=== PATIENT | female | born 1995 | race Caucasian/White ===

== ENCOUNTER → 2018-08-27 | Outpatient (REF) | payer OTHER ==
[2018-08-27 11:34] LABS: BLOOD UREA NITROGEN 8 MG/DL (7-18); CALCIUM LEVEL 8.5 MG/DL (8.5-10.1); CARBON DIOXIDE LEVEL 26 MEQ/L (21-32); CHLORIDE LEVEL 108 MEQ/L (98-107); CREATININE FOR GFR 0.81 MG/DL (0.55-1.30); FREE T4 1.01 NG/DL (0.76-1.46); GLOMERULAR FILTRATION RATE > 60.0 (>60); GLUCOSE, FASTING 93 MG/DL (70-100); POTASSIUM SERUM 4.3 MEQ/L (3.5-5.1); SODIUM LEVEL 140 MEQ/L (136-145); THYROID STIMULATING HORMONE 0.546 uIU/ML (0.358-3.740)
[2018-08-27 11:35] LABS: TOTAL 25(OH) VITAMIN D 17.6 NG/ML (30.0-100.0)
[2018-08-27 11:50] LABS: HEMOGLOBIN A1c 5.3 %
== END ==
LOC: M SFHCLERA 09:01
PROVIDERS: ATTEND Family Medicine
DX: E66.09 Other obesity due to excess calories (principal)

== ENCOUNTER → 2019-04-22 | Outpatient (REF) | payer OTHER | LOC: M SFHCLERA 10:22 | PROVIDERS: ATTEND Family Medicine | DX: D22.4 Melanocytic nevi of scalp and neck (principal) ==

== ENCOUNTER → 2019-06-30 | Outpatient (REF) | payer OTHER | LOC: M SFHCLERA 17:13 | PROVIDERS: ATTEND Nurse Practitioner Family | DX: J00 Acute nasopharyngitis [common cold] (principal) ==

== ENCOUNTER → 2020-12-07 | Outpatient (CLI) | payer OTHER ==
--- NOTE | 2020-12-08 13:18 | REPVR ---
PROCEDURE INFORMATION: Exam: CT Maxillofacial Without Contrast, Sinus Exam date and time: 12/07/2020 11:51 AM Age: 25 years old Clinical indication: Sinusitis; Chronic; Additional Info: CHRONIC MOORE SINUSITIS TECHNIQUE: Imaging protocol: CT Maxillofacial without contrast. Focus on the sinuses. Radiation optimization: All CT scans at this facility use at least one of these dose optimization techniques: automated exposure control; mA and/or kV adjustment per patient size (includes targeted exams where dose is matched to clinical indication); or iterative reconstruction. COMPARISON: No relevant prior studies available. FINDINGS: Frontal sinuses: The frontal sinuses are clear. Ethmoid air cells: The ethmoid air cells are not opacified and no apparent mucosal thickening is seen. Sphenoid sinuses: The sphenoid sinuses are clear. Maxillary sinuses: Mild mucosal thickening is present at the floor of the maxillary sinuses bilaterally without sinus opacification or involvement of the ostiomeatal units. Attenuation of the accumulated material suggest more acute mucous rather than inspissated secretions. Nasal cavity/Septum: Normal. Orbital cavity: Orbits are normal. Bones/joints: No acute findings. Soft tissues: Normal. Mastoid air cells: The mastoid air cells are clear. IMPRESSION: Mild mucosal thickening at the floor of both maxillary sinuses, with CT characteristics reflecting more acute sinus mucositis rather than chronic. Remaining paranasal sinuses are clear. Electronically signed by: Sofiya Martínez On 12/08/2020 13:18:07 PM
== END ==
LOC: M RAD 11:10
PROVIDERS: ATTEND Otolaryngology
DX: J32.4 Chronic pansinusitis (principal)

== ENCOUNTER → 2020-12-29 | Outpatient (CLI) | payer OTHER ==
[~2020-12-29] MED LIST: ADDE20CA3 PO; SERT-141 PO; SETL1TAB PO; VENTAER INH
== END ==
LOC: M LABSMTC 13:00
PROVIDERS: ATTEND Anesthesiology
DX: Z01.812 Encounter for preprocedural laboratory examination (principal); Z20.822 Contact with and (suspected) exposure to COVID-19

== ENCOUNTER 2021-01-03 09:46 | Day surgery (SDC) | payer OTHER ==
[~2021-01-03] VITALS: Ht 170.2 cm; Wt 89.3 kg
[~2021-01-03 09:46] MED LIST changes: +LIDOCAINE 1% MDV 20ML VIAL SQ PRN; +LIDOCAINE 2% 100MG/5ML SDV (FOR ANES.) As Ordered ONE; +LR 1,000 ML IV ONE; +MIDAZOLAM INJ 2MG/2ML VIAL (J2250 PER 1MG) As Ordered ONE; +ONDANSETRON 4MG/2ML VIAL As Ordered ONE; +ROCURONIUM BROMIDE 50 MG/5 ML VIAL As Ordered ONE; +dexameTHASONE 4 MG/ML 1ML VIAL (J1100 PER 1MG) As Ordered ONE; +fentaNYL 100 MCG/2 ML INJECTION (J3010) As Ordered ONE; +propofoL 200 MG/20 ML VIAL As Ordered ONE
[2021-01-03] MEDS ORDERED: LIDOCAINE W/EPINEPHRINE 1% 20ML VIAL As Ordered ONE (09:50)
[2021-01-03] MEDS ORDERED: BUPIVACAINE/EPIN 0.25% 30 ML VIAL As Ordered ONE (09:50)
[2021-01-03] MEDS ORDERED: SCOPOLAMINE 1MG TRANSDERMAL PATCH As Ordered ONE (10:12)
[2021-01-03] MEDS ORDERED: SCOPOLAMINE 1MG TRANSDERMAL PATCH TOP ONE (10:20)
[2021-01-03] MEDS ORDERED: ACETAMINOPHEN 1000MG 100ML IV BTL (OFIRMEV) (J0131 PER 10MG) As Ordered ONE (10:27)
[2021-01-03] MEDS ORDERED: SUGAMMADEX SODIUM 500 MG/5 ML VIAL (BRIDION) As Ordered ONE (10:28)
[2021-01-03] MEDS ORDERED: ONDANSETRON 4MG/2ML VIAL IV PRN (11:10)
[2021-01-03] MEDS ORDERED: LR 1,000 ML IV SCH ×2 (11:10)
[2021-01-03] MEDS ORDERED: NORCO, ANEXSIA 5/325MG TABLET (HYDROcodone/ACETAMINOPHEN) PO PRN (11:15)
[2021-01-03] MEDS: fentaNYL 100 MCG/2 ML INJECTION (J3010) IV PRN ×4 (11:27→11:42)
[2021-01-03] MEDS: oxyCODONE 5MG TAB PO PRN ×2 (11:28→12:28)
--- NOTE | 2021-01-03 11:53 | RO ---
OPERATIVE NOTE DATE OF OPERATION: 01/03/2021 PREOPERATIVE DIAGNOSIS: Chronic tonsillitis. POSTOPERATIVE DIAGNOSIS: Chronic tonsillitis. PROCEDURE: Tonsillectomy. 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 DESCRIPTION OF PROCEDURE: Under general anesthesia with the patient intubated a Maya-Christofer mouth gag was inserted. The tonsillar area was infiltrated with lidocaine, epinephrine, and Marcaine. Using cautery, I dissected the tonsils free from their beds on both sides. I cauterized vessels seen. The same procedure was performed on both sides. No bleeding. The patient tolerated the procedure well and was extubated and transferred to the recovery room in excellent condition.
[2021-01-03 13:10] VITALS: BP 118/57
== END 2021-01-03 13:16 | disposition home or self-care (01) ==
LOC: M SDC 09:46
PROVIDERS: ATTEND Otolaryngology
DX: J35.01 Chronic tonsillitis (principal); K21.9 Gastro-esophageal reflux disease without esophagitis; G43.909 Migraine, unspecified, not intractable, without status migrainosus; Z79.899 Other long term (current) drug therapy
CPT/HCPCS: 42826; 81025; 88302; J0131; J1100; J2250; J2405; J3010

== ENCOUNTER → 2021-05-18 | Outpatient (CLI) | payer OTHER ==
[~2021-05-18] MED LIST changes: +ARIP1TAB4; -LIDOCAINE 1% MDV 20ML VIAL SQ PRN; -LIDOCAINE 2% 100MG/5ML SDV (FOR ANES.) As Ordered ONE; -LR 1,000 ML IV ONE; -MIDAZOLAM INJ 2MG/2ML VIAL (J2250 PER 1MG) As Ordered ONE; -ONDANSETRON 4MG/2ML VIAL As Ordered ONE; -ROCURONIUM BROMIDE 50 MG/5 ML VIAL As Ordered ONE; -dexameTHASONE 4 MG/ML 1ML VIAL (J1100 PER 1MG) As Ordered ONE; -fentaNYL 100 MCG/2 ML INJECTION (J3010) As Ordered ONE; -propofoL 200 MG/20 ML VIAL As Ordered ONE
== END ==
LOC: M LABSMTC 10:17
PROVIDERS: ATTEND Anesthesiology
DX: Z01.812 Encounter for preprocedural laboratory examination (principal); Z20.822 Contact with and (suspected) exposure to COVID-19

== ENCOUNTER 2021-05-23 06:10 | Day surgery (SDC) | payer OTHER ==
[~2021-05-23] VITALS: Ht 170.2 cm; Wt 92.1 kg
[~2021-05-23 06:10] MED LIST changes: +LR 1,000 ML IV ONE
--- OUTSIDE RECORDS SUMMARY | 2021-05-23 06:14 | CCD ---
Author Author [facility] Organization [facility] Address Unknown Phone Unavailable Care Team Providers Care Sharepoint Developer Name Role Phone Lesly Rin Unavailable PROBLEMS Type Condition ICD9-CM Code [id number] Code Onset Dates Condition S tatus W/U Status Risk SNOMED Code Notes Problem Attention deficit disorder, unspecified hyperactivity presence F98.8 Active confirmed 88286762 Problem Dysthymia F34.1 Active confirmed 97508163 Problem Allergic rhinitis, unspecified seasonality, unspecifie d trigger J30.9 Active confirmed 64635586 Problem Asymmetry of tonsils J35.8 Active confirmed 856381303 Problem Class 2 obesity due to exces s calories without serious comorbidity in adult, unspecified BMI E66.09 Active confirmed 5205555 01 Problem Attention deficit hyperactivity disorder (ADHD), unspecified ADHD type F90.9 Active confirmed 623574372 Problem Severe episode of recurrent major depressive disorder, without psychotic features F33.2 Active confirmed 05493882 Problem Moderate episode of recurrent major depressive disorder F33.1 Active confirmed 715816514 Problem Post-traumatic stress disorder, unspecified F43.10 Active confirmed 68783113 Problem Dysthymic disorder F34.1 Active confirmed 7 0166676 ALLERGIES Allergen (clinical drug ingredient) Drug/Non Drug Allergy do cumented on EMR Reaction Allergy Type Onset Date Status amoxicillin Amoxicillin([facility] Code:[address]-85) vomiting Drug Aller gy Active ENCOUNTERS from 1994 to 2021-05-16 Encounter Location Date Provider Diagnosis [facility] [address] [facility] [phone] [place] [address] Apr, Rin Grace Post-traumatic stress disord er, unspecified F43.10 IMMUNIZATIONS Vaccine Route Administration Date Status TDAP 0.5mL (Boostrix) IM Intramuscular October 27, 2019 Administe red Influenza 6mo & up Fluzone IM Intramuscular Jun 08, 2020 Admi nistered Influenza 6mo & up Fluzone IM Intramuscular Aug 27, 2018 Admi nistered SOCIAL HISTORY Tobacco Use: Social History Observation Description Date Details (start date - stop date) Never Smoker Sex Assigned At : Social History Observation Description Sex Assigned At Unknown Education: Question Answer Notes Level of Education: Not Finished College Audit Question Answer Notes Total Score: 0 Interpretation: Alcohol Education Language: Question Answer Notes Languages spoken: Georgian sign. Mother deaf Adventism: Question Answer Notes Adventism 33 None Domestic Violence: Question Answer Notes Status: Single Sexual Hx: Question Answer Notes Had sex in the last 12 months (vaginal, oral, or anal)? No LMP: 02/13/21 Have you ever had an STD? No Drug and Alcohol Question Answer Notes Total Score: 0 Interpretation: No problems reported Alcohol Screening: Question Answer Notes Did you have a drink containing alcohol in the past year? No Points 0 Interpretation Negative Tobacco Use: Question Answer Notes Are you a: never smoker Never REASON FOR REFERRAL No Information VITAL SIGNS No information MEDICATIONS Medication SIG (Take, Route, Frequency, Duration) Notes Start Da te End Date Status Flonase Allergy Relief 50 MCG/ACT 1 spray in each nost ril Nasally bid for 30 day(s) Sep, Not-Taking Sertraline HCl 50 MG 1 tablet Orally Once a day for 90 day(s) May, Active Ventolin HFA 108 (90 Base) MCG/ACT 2 puffs as needed I nhalation every 6 hrs for 90 days May, Active Adderall 10 MG 1 tablet Orally Twice a day for 30 days Apr, Active ZyrTEC Allergy 10 MG 1 tablet Orally Once a day for 30 day(s) Sep, Not-Taking Omeprazole 20 MG 1 capsule 30 minutes before morning meal Orally Once a day for 30 day(s) Sep, Not-Taking Prazosin HCl 1 MG 1 capsule at bedtime for thr ee days, then 2 caps at bedtime Orally Once a day for 30 day(s) November, Active Jolessa 0.15-0.03 MG 1 tablet Orally Once a day for 91 day(s) 11 Apr, 2019 Active PROCEDURES No Information RESULTS No Results REASON FOR VISIT New Refill Request MEDICAL (GENERAL) HISTORY Type Description Date Medical History ADD Medical History dysthymia Medical History obesity Medical History depression Surgical History Tonsillectomy 01/03/21 Hospitalization History tongue swelling after dental procedu re 2011 Goals Section No Information Health Concerns No Information MEDICAL EQUIPMENT No Information MENTAL STATUS No Information FUNCTIONAL STATUS No Information ASSESSMENTS Encounter Date Diagnosis Assessment Notes Treatment Notes Treatm ent Clinical Notes Apr, Post-traumatic stress disorder, unspecified (ICD -10 - F43.10) PLAN OF TREATMENT Medication Medication Name Sig Start Date Stop Date Adderall 10 MG 1 tablet Orally Twice a day for 30 days Apr, Prazosin HCl 1 MG 1 capsule at bedtime for thr ee days, then 2 caps at bedtime Orally Once a day for 30 day(s) November, Insurance Providers Payer Name Payer Address Payer Phone Insured Name Patient Relati onship to Insured Coverage Start Date Coverage End Date [facility] COMMUNITY [facility]AN [facility] [address] [facility] [address] GISELLE BRIGGS
--- OUTSIDE RECORDS SUMMARY | 2021-05-23 06:15 | CCD ---
Author Author [facility] Organization [facility] Address Unknown Phone Unavailable Care Team Providers Care Head And Neck Surgeon Name Role Phone Lesly, iRn Unavailable PROBLEMS Type Condition ICD9-CM Code [id number] Code Onset Dates Condition S tatus W/U Status Risk SNOMED Code Notes Problem Attention deficit disorder, unspecified hyperactivity presence F98.8 Active confirmed 19789149 Problem Dysthymia F34.1 Active confirmed 66582545 Problem Allergic rhinitis, unspecified seasonality, unspecifie d trigger J30.9 Active confirmed 98708700 Problem Asymmetry of tonsils J35.8 Active confirmed 467265799 Problem Class 2 obesity due to exces s calories without serious comorbidity in adult, unspecified BMI E66.09 Active confirmed 4815401 01 Problem Attention deficit hyperactivity disorder (ADHD), unspecified ADHD type F90.9 Active confirmed 317725197 Problem Severe episode of recurrent major depressive disorder, without psychotic features F33.2 Active confirmed 30346435 Problem Moderate episode of recurrent major depressive disorder F33.1 Active confirmed 060513475 Problem Post-traumatic stress disorder, unspecified F43.10 Active confirmed 72736446 Problem Dysthymic disorder F34.1 Active confirmed 7 5456988 ALLERGIES Allergen (clinical drug ingredient) Drug/Non Drug Allergy do cumented on EMR Reaction Allergy Type Onset Date Status amoxicillin Amoxicillin([facility] Code:[address]-90) vomiting Drug Aller gy Active ENCOUNTERS from 1994 to 2021-03-16 Encounter Location Date Provider Diagnosis [facility] [address] [facility] [phone] [place] [address] Feb, Rin Lesly IMMUNIZATIONS Vaccine Route Administration Date Status TDAP [...] Education Language: Question Answer Notes Languages spoken: Vietnamese sign. Mother deaf Church: Question Answer Notes Church 33 None Domestic Violence: Question Answer Notes [...] Nasally bid for 30 day(s) Sep, Not-Taking Jolessa 0.15-0.03 MG 1 tablet Orally Once a day for 91 day(s) Oct, Active Sertraline HCl 50 MG 1 tablet Orally Once a day for 90 day(s) May, Active Prazosin HCl 1 MG 1 capsule at bedtime for thr ee days, then 2 caps at bedtime Orally Once a day for 30 day(s) November, Active ZyrTEC Allergy 10 MG 1 tablet Orally Once a day for 30 day(s) Sep, Not-Taking Omeprazole 20 MG 1 capsule 30 minutes before morning meal Orally Once a day for 30 day(s) Sep, Not-Taking Ventolin HFA 108 (90 Base) MCG/ACT 2 puffs as needed I nhalation every 6 hrs for 90 days May, Active Adderall 10 MG 1 tablet Orally Twice a day for 30 days Feb, Active PROCEDURES No Information RESULTS No Results [...] No Information FUNCTIONAL STATUS No Information ASSESSMENTS No Information PLAN OF TREATMENT Medication Medication Name Sig Start Date Stop Date Prazosin HCl 1 MG 1 capsule at bedtime for thr ee days, then 2 caps at bedtime Orally Once a day for 30 day(s) November, Adderall 10 MG 1 tablet Orally Twice a day for 30 days Feb, Next Appt Details Provider Name:Jackelyn Khoury, 2021-03-22 03:00:00 PM, [address] [facility], , [place], [address] Insurance Providers Payer Name Payer Address Payer Phone Insured Name Patient Relati onship to Insured Coverage Start Date Coverage End Date [facility] COMMUNITY PLAN [facility] [employer] [address] [facility] [address] [phone] GISELLE BRIGGS
--- OUTSIDE RECORDS SUMMARY | 2021-05-23 06:15 | CCD | Continuity of Care Document ---
Author Author Jose C MENEZES MD Organization Unknown Address [address] [address] Phone [phone] Care Team Providers Care Taxicab Starter Name Role Phone Candi Buckner AUTM [phone] Rin Grace M.D. AUTM [phone] Problems Description No Information Available Social History Type Date Description Comments Sex Unknown ETOH Use Denies alcohol use Tobacco Use Start: Unknown Non Smoker Recreational Drug Use Denies Drug Use Allergies, Adverse Reactions, Alerts Description No Known Drug Allergies Medications Active Medications SIG Qnty Indications Ordering Provide r Date Setlakin 0.15-0.03mg Tablets Take One Tablet By Mouth Every Day Unknown Amphetamine-Dextroamphet ER 20mg Caps ER 24HR Take 1 Capsule By Mouth In The Morning Maximum Daily Dose 1 Unknown Prazosin HCL 1mg Capsules Rin Grace M.D. Sertraline HCL 50mg Tablets Kailyn Ann M.D. History Medications [place] 5-325mg Tablets 1 tab every 4 hours as needed pain 45tabs Alejandro Menezes MD 01/03/2021 - Immunizations Description No Information Available Vital Signs Date Vital Result Comment 04/09/2021 3:03pm Height 67 inches 5'7" Weight 203.00 lb BMI (Body Mass Index) 31.8 kg/m2 [place] Body Weight 135 lb Weight 92.081 kg BSA (Body Surface Area) 2.04 m2 01/10/2021 2:08pm Height 67 inches 5'7" Weight 192.00 lb BMI (Body Mass Index) 30.1 kg/m2 [place] Body Weight 135 lb Weight 87.091 kg BSA (Body Surface Area) 1.99 m2 Results Test Acquired Date Facility Test Result H/L Range Note Laboratory test finding 01/03/2021 [facility] Main Lab [address] [place] [address] [phone] Pathology Request For Service (SEE NOTE) 1 1 FINAL DIAGNOSIS AB - Right and left tonsils, tonsillectomy: Lymphoid follicular hyperplasia. Actinomyces colonies are noted in tonsillar crypts. 01/04/2021 - 1321 CLINICAL DIAGNOSIS Chronic tonsillitis 01/04/2021 - 0715 GROSS DIAGNOSIS A - Received in formalin labeled "right tonsil" is a 3.3 x 2 x 2 cm. tonsil. The mucosal lining is smooth. Sectioning reveals deep crypts containing debris, quality control representative in one. B - Received in formalin labeled "left tonsil" is a 3.7 x 2.2 x 2 cm. tonsil. The mucosal lining is smooth. Sectioning reveals deep crypts containing debris, quality control representative in one. - 01/04/2021 - 0715 Signed Iram Hoyos MD 01/04/2021 1501 Procedures Date Code Description Status 04/09/2021 91924 Office/Outpatient Established Lo w MDM 20-29 Min Completed 04/09/2021 63014 Endoscopy Nasal Diagnostic Compl eted 01/10/2021 31164 Office/Outpatient Established Lo w MDM 20-29 Min Completed 01/03/2021 36041 Tonsillectomy > 12 Years Complet ed 11/23/2020 48973 Office/Outpatient New Low MDM 30 -44 Minutes Completed 11/23/2020 45762 Laryngoscopy Flexible Fiberoptic Diagnostic Completed Medical Devices Description No Information Available Encounters Type Date Location Provider Dx Diagnosis Office Visit 04/09/2021 3:10p [facility] Alejandro Menezes MD J30.9 Allergic rhinitis, unspecified J34.2 Deviated nasal septum Office Visit 01/10/2021 2:00p [facility] Don Gray II, PA-C J35.01 Chronic tonsillitis J34.2 Deviated nasal septum Office Visit 11/23/2020 2:10p [facility] Alejandro Menezes MD J32.4 Chronic pansinusitis J35.01 Chronic tonsillitis Assessments Date Code Description Provider 04/09/2021 J30.9 Allergic rhinitis, unspecified N satlin Menezes MD 04/09/2021 J34.2 Deviated nasal septum Alejandro rodriguez MD 01/10/2021 J35.01 Chronic tonsillitis Don Gray II, PAAnaC 01/10/2021 J34.2 Deviated [facility] septum [facility] PA[facility] 01/03/2021 J35.01 Chronic tonsillitis Alejandro Menezes MD 11/23/2020 J32.4 Chronic pansinusitis Alejandro Menezes MD 11/23/2020 J35.01 Chronic tonsillitis Alejandro Menezes MD Plan of Treatment Future Appointment(s):* 05/16/2021 7:30 am - Alejandro Menezes MD at [facility] 04/09/2021 - Alejandro Menezes MD* J30.9 Allergic rhinitis, unspecified * J34.2 Deviated nasal septum Functional Status Description No Information Available Mental Status Description No Information Available Referrals Refer to Reason for Referral Status Appt Date Alejandro Menezes M.D. 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
--- OUTSIDE RECORDS SUMMARY | 2021-05-23 06:15 | CCD ---
Author Author [facility] Organization [facility] Address Unknown Phone Unavailable Care Team Providers Care Alterations Sewer Name Role Phone Jackelyn Khoury Unavailable PROBLEMS Type Condition ICD9-CM Code [id number] Code Onset Dates Condition S tatus W/U Status Risk SNOMED Code Notes Problem Attention deficit disorder, unspecified hyperactivity presence F98.8 Active confirmed 20684338 Problem Dysthymia F34.1 Active confirmed 90668130 Problem Allergic rhinitis, unspecified seasonality, unspecifie d trigger J30.9 Active confirmed 02951649 Problem Asymmetry of tonsils J35.8 Active confirmed 729419804 Problem Class 2 obesity due to exces s calories without serious comorbidity in adult, unspecified BMI E66.09 Active confirmed 7926382 01 Problem Attention deficit hyperactivity disorder (ADHD), unspecified ADHD type F90.9 Active confirmed 042745117 Problem Severe episode of recurrent major depressive disorder, without psychotic features F33.2 Active confirmed 49433211 Problem Moderate episode of recurrent major depressive disorder F33.1 Active confirmed 622349097 Problem Post-traumatic stress disorder, unspecified F43.10 Active confirmed 01172905 Problem Dysthymic disorder F34.1 Active confirmed 7 9378324 ALLERGIES Allergen (clinical drug ingredient) Drug/Non Drug Allergy do cumented on EMR Reaction Allergy Type Onset Date Status amoxicillin Amoxicillin([facility] Code:[address]-23) vomiting Drug Aller gy Active ENCOUNTERS from 1994 to 2021-03-07 Encounter Location Date Provider Diagnosis [address] [place] [address] Feb, Jackelyn Khoury Post-traumatic stres s disorder, unspecified F43.10 and Dysthymic disorder F34.1 IMMUNIZATIONS Vaccine Route Administration Date Status TDAP [...] Education Language: Question Answer Notes Languages spoken: Estonian sign. Mother deaf Scientology: Question Answer Notes Scientology 33 None Domestic Violence: Question Answer Notes [...] hrs for 90 days May, Active Adderall XR 20 mg 1 capsule in the morning Orally Once a d ay for 90 day(s) Code B Jan, Active PROCEDURES No Information RESULTS No Results REASON FOR VISIT No Information MEDICAL (GENERAL) HISTORY Type Description Date Medical History ADD Medical History dysthymia Medical History obesity Medical History depression Surgical History Tonsillectomy 01/03/21 Hospitalization History tongue swelling after dental procedu re 2011 Goals Section No Information Health Concerns No Information MEDICAL EQUIPMENT No Information MENTAL STATUS No Information FUNCTIONAL STATUS No Information ASSESSMENTS Encounter Date Diagnosis Assessment Notes Treatment Notes Treatm ent Clinical Notes Feb, Post-traumatic stress disorder, unspecified (ICD -10 - F43.10) Jose C attended scheduled follow up appointment. Presents for tx with ongoing hx of anxious and depressive symptoms. Supported Jose C in processing time since previous appointment using cognitive therapy. Jose C is scheduled for follow up appointment for psychotherapy 03/15/21 at 3pm, aware to call for earlier appointment if needed and to use ER for mental health emergencies. Feb, Dysthymic disorder (ICD-10 - F34.1) PLAN OF TREATMENT Medication Medication Name Sig Start Date Stop Date Prazosin HCl 1 MG 1 capsule at bedtime for thr ee days, then 2 caps at bedtime Orally Once a day for 30 day(s) November, Treatment Notes Assessment Notes Clinical Notes Post-traumatic stress disorder, unspecified Jose C attended scheduled follow up appointment. Presents for tx with ongoing hx of anxious and depressive symptoms. Supported Jose C in processing time since previous appointment using cognitive therapy.Jose C is scheduled for follow up appointment for psychotherapy 03/15/21 at 3pm, aware to call for earlier appointment if needed and to use ER for mental health emergencies. Next Appt Details Provider Name:Jackelyn Khoury, 2021-03-15 03:00:00 PM, [address] [facility], , [place], [address] Provider Name:Jackelyn Khoury 2021-03-22 03:00:00 PM, [address], , [place], [address] Insurance Providers Payer Name Payer Address Payer Phone Insured Name Patient Relati onship to Insured Coverage Start Date Coverage End Date [facility] [address] [facility] [phone] JOSE C BRIGGS
--- OUTSIDE RECORDS SUMMARY | 2021-05-23 06:15 | CCD ---
Author Author [facility] Organization [facility] Address Unknown Phone Unavailable Care Team Providers Care Crm Analyst Name Role Phone Lesly, Rin Unavailable PROBLEMS Type Condition ICD9-CM Code [id number] Code Onset Dates Condition S tatus W/U Status Risk SNOMED Code Notes Problem Attention deficit disorder, unspecified hyperactivity presence F98.8 Active confirmed 67364990 Problem Dysthymia F34.1 Active confirmed 79613712 Problem Allergic rhinitis, unspecified seasonality, unspecifie d trigger J30.9 Active confirmed 93481452 Problem Asymmetry of tonsils J35.8 Active confirmed 265740870 Problem Class 2 obesity due to exces s calories without serious comorbidity in adult, unspecified BMI E66.09 Active confirmed 1329704 01 Problem Attention deficit hyperactivity disorder (ADHD), unspecified ADHD type F90.9 Active confirmed 641993368 Problem Severe episode of recurrent major depressive disorder, without psychotic features F33.2 Active confirmed 37566331 Problem Moderate episode of recurrent major depressive disorder F33.1 Active confirmed 561146695 Problem Post-traumatic stress disorder, unspecified F43.10 Active confirmed 28509218 Problem Dysthymic disorder F34.1 Active confirmed 7 0101836 ALLERGIES Allergen (clinical drug ingredient) Drug/Non Drug Allergy do cumented on EMR Reaction Allergy Type Onset Date Status amoxicillin Amoxicillin([facility] Code:[address]-74) vomiting Drug Aller gy Active ENCOUNTERS from 1994 to 2021-03-07 Encounter Location Date Provider Diagnosis [facility] [address] [facility] [phone] [place] [address] Feb, Rin Lesly Attention deficit hyperactiv ity disorder (ADHD), unspecified ADHD type F90.9 and Post-traumatic stress disorder, unspecified F43.10 IMMUNIZATIONS Vaccine Route Administration Date [...] Education Language: Question Answer Notes Languages spoken: Greenlandic sign. Mother deaf Jew: Question Answer Notes Jew 33 None Domestic Violence: Question Answer Notes [...] REASON FOR REFERRAL No Information VITAL SIGNS Weight 201.4 lbs Feb, Weight-kg 91.35 kg Feb, Height 67 in Feb, BMI 31.54 kg/m2 Feb, Heart Rate 62 /min Feb, Respiratory Rate 17 /min Feb, Temperature 98.9 degrees Fahrenheit Feb, Oximetry 100 Feb, Blood pressure systolic 112 mm Hg Feb, Blood pressure diastolic 60 mm Hg Feb, MEDICATIONS Medication SIG (Take, Route, Frequency, Duration) [...] Information RESULTS No Results REASON FOR VISIT transfer from [facility] (GENERAL) HISTORY Type Description Date Medical History ADD Medical History dysthymia Medical History obesity Medical History depression Surgical History Tonsillectomy 01/03/21 Hospitalization History tongue swelling after dental procedu re 2011 Goals Section No Information Health Concerns No Information MEDICAL EQUIPMENT No Information MENTAL STATUS No Information FUNCTIONAL STATUS No Information ASSESSMENTS Encounter Date Diagnosis Assessment Notes Treatment Notes Treatm ent Clinical Notes Feb, Attention deficit hyperactiv ity disorder (ADHD), unspecified ADHD type (ICD-10 - F90.9) Pt currently taking Adderall 20mg extended release 24-hour, but feels as though it does not really last all day and in ineffective. [employer] [facility] Reference #: [id number]; last dispensed on 02/15/2021. Once next refill is due, will change to Aderall 10mg BID, with f/u in 1 month after taking new dosage to assess how its working. Pt expressed understanding and agreed with plan. Feb, Post-traumatic stress disorder, unspecified (ICD -10 - F43.10) Patient requesting refill of prazosin at this visit. Feb, Other Pt was informed pap has to be re-done. No result available for pap smear that was done in December 2020. Pt to schedule appt for routine pap smear screening at earliest convenience. PLAN OF TREATMENT Medication Medication Name Sig Start Date Stop Date Prazosin HCl 1 MG 1 capsule at bedtime for thr ee days, then 2 caps at bedtime Orally Once a day for 30 day(s) November, Treatment Notes Assessment Notes Clinical Notes Attention deficit hyperactivity disorder (ADHD), unspecified ADHD type Pt currently taking Adderall 20mg extended release 24-hour, but feels as though it does not really last all day and in ineffective. [employer] Reference #: [id number]; last dispensed on 02/15/2021.Once next refill is due, will change to Aderall 10mg BID, with f/u in 1 month after taking new dosage to assess how its working. Pt expressed understanding and agreed with plan. Post-traumatic stress disorder, unspecified Patient requesting refill of prazosin at this visit. Next Appt Details prn Reason:f/u 1 month after dosage of a dderall is changed to reassess ADHD Provider Name:Jackelyn Khoury, 2021-03-15 03:00:00 PM, [address] [employer] [facility], , [place], [address] Provider Name:Jackelyn Khoury, 2021-03-22 03:00:00 PM, [address] [employer] [facility], , [place], [address] Follow Up:prnf/u 1 month after dosage of adderall is changed to reassess ADHD Insurance Providers Payer Name Payer Address Payer Phone Insured Name Patient Relati onship to Insured Coverage Start Date Coverage End Date [facility] [address] [facility] [address] [phone] GISELLE BRIGGS
--- OUTSIDE RECORDS SUMMARY | 2021-05-23 06:15 | CCD ---
Author Author [facility] Organization [facility] Address Unknown Phone Unavailable Care Team Providers Care Sexual Assault Response Coordinator Name Role Phone Jackelyn Khoury Unavailable PROBLEMS Type Condition ICD9-CM Code [id number] Code Onset Dates Condition S tatus W/U Status Risk SNOMED Code Notes Problem Class 2 obesity due to exces s calories without serious comorbidity in adult, unspecified BMI E66.09 Active confirmed 5380117 01 Problem Attention deficit disorder, unspecified hyperactivity presence F98.8 Active confirmed 11351035 Problem Dysthymia F34.1 Active confirmed 74496392 Problem Dysthymic disorder F34.1 Active confirmed 7 1492839 Problem Asymmetry of tonsils J35.8 Active confirmed 117288930 Problem Allergic rhinitis, unspecified seasonality, unspecifie d trigger J30.9 Active confirmed 10279099 Problem Severe episode of recurrent major depressive disorder, without psychotic features F33.2 Active confirmed 82193960 Problem Moderate episode of recurrent major depressive disorder F33.1 Active confirmed 129181026 Problem Post-traumatic stress disorder, unspecified F43.10 Active confirmed 01988966 ALLERGIES Allergen (clinical drug ingredient) Drug/Non Drug Allergy do cumented on EMR Reaction Allergy Type Onset Date Status amoxicillin Amoxicillin([facility] Code:[address]-05) vomiting Drug Aller gy Active ENCOUNTERS from 1994 to 2021-02-21 Encounter Location Date Provider Diagnosis [facility] [address] [facility] [place] [address] Jan, Jackelyn Khoury Post-traumatic stres s disorder, unspecified [...] Education Language: Question Answer Notes Languages spoken: Sami sign. Mother deaf Baptist: Question Answer Notes Baptist 33 None Sexual Hx: Question Answer Notes Had sex in the last 12 months (vaginal, oral, or anal)? No LMP: 08/10/2018 Have you ever had an STD? No [...] Notes Start Da te End Date Status Sertraline HCl 50 MG 1 tablet Orally Once a day for 90 day(s) May, Active ZyrTEC Allergy 10 MG 1 tablet Orally Once a day for 30 day(s) Sep, Not-Taking Flonase Allergy Relief 50 MCG/ACT 1 spray in each nost ril Nasally bid for 30 day(s) Sep, Not-Taking Omeprazole 20 MG 1 capsule 30 minutes before morning meal Orally Once a day for 30 day(s) Sep, Not-Taking Ventolin HFA 108 (90 Base) MCG/ACT 2 puffs as needed I nhalation every 6 hrs for 90 days May, Active Jolessa 0.15-0.03 MG 1 tablet Orally Once a day for 91 day(s) Oct, Active Adderall XR 20 mg 1 capsule in the morning Orally Once a day for 90 day(s) Jan, Active Prazosin HCl 1 MG 1 capsule at bedtime for thr ee days, then 2 caps at bedtime Orally Once a day for 30 day(s) November, Not-Taking PROCEDURES No Information RESULTS No Results REASON [...] Notes Treatment Notes Treatm ent Clinical Notes Jan, Post-traumatic stress disorder, unspecified (ICD -10 - F43.10) Jose C attended scheduled follow up appointment. Presents for tx with ongoing hx of anxious and depressive symptoms. Supported Jose C in processing time since previous appointment using cognitive and interpersonal therapy. Jose C is active and engaged in session. Jose C is scheduled for follow up appointment for psychotherapy 02/08/21 at 3pm, aware to call for earlier appointment if needed and to use ER for mental health emergencies. Jan, Dysthymic disorder (ICD-10 - F34.1) PLAN OF TREATMENT Medication Medication Name Sig Start Date Stop Date Adderall XR 20 mg 1 capsule in the morning Orally Once a d ay for 90 day(s) Jan, Jolessa 0.15-0.03 MG 1 tablet Orally Once a day for 91 day(s) Oct, Treatment Notes Assessment Notes Clinical Notes Post-traumatic stress disorder, unspecified Jose C attended scheduled follow up appointment. Presents for tx with ongoing hx of anxious and depressive symptoms. Supported Jose C in processing time since previous appointment using cognitive and interpersonal therapy. Jose C is active and engaged in session.Jose C is scheduled for follow up appointment for psychotherapy 02/08/21 at 3pm, aware to call for earlier appointment if needed and to use ER for mental health emergencies. Next Appt Details Provider Name:Jackelyn Khoury, 2021-02-22 03:00:00 PM, [address] [email or web address] [facility], , [place], [address] Provider Name:Rin Grace, 2021-02-27 04:30:00 PM, [address] [employer], , [place], [address], Provider Name:Jackelyn Khoury 2021-03-01 03:00:00 PM, [address] [email or web address] [address], , [place], [address] Provider Name:Jackelyn Peng, 2021-03-06 03:00:00 PM, [address] [facility], , [place], [address] Provider Name:Jackelyn Peng, 2021-03-15 03:00:00 PM, [address] [facility], , [place], [address] Provider Name:Jackelyn Peng, 2021-03-22 03:00:00 PM, [address] [facility], , [place], [address] Insurance Providers Payer Name Payer Address Payer Phone Insured Name Patient Relati onship to Insured Coverage Start Date Coverage End Date [facility] [address] [facility] [address] JOSE C BRIGGS
--- OUTSIDE RECORDS SUMMARY | 2021-05-23 06:15 | CCD ---
Author Author [facility] Organization [facility] [employer] [facility] Address Unknown Phone Unavailable Care Team Providers Care Equipment Sales Specialist Name Role Phone Terrance Joya Unavailable PROBLEMS Type Condition ICD9-CM Code [id number] Code Onset Dates Condition S tatus W/U Status Risk SNOMED Code Notes Problem Attention deficit disorder, unspecified hyperactivity presence F98.8 Active confirmed 03455277 Problem Dysthymia F34.1 Active confirmed 07967135 Problem Allergic rhinitis, unspecified seasonality, unspecifie d trigger J30.9 Active confirmed 10836947 Problem Asymmetry of tonsils J35.8 Active confirmed 848749988 Problem Class 2 obesity due to exces s calories without serious comorbidity in adult, unspecified BMI E66.09 Active confirmed 4642041 01 Problem Attention deficit hyperactivity disorder (ADHD), unspecified ADHD type F90.9 Active confirmed 111833542 Problem Severe episode of recurrent major depressive disorder, without psychotic features F33.2 Active confirmed 42674621 Problem Moderate episode of recurrent major depressive disorder F33.1 Active confirmed 107542793 Problem Post-traumatic stress disorder, unspecified F43.10 Active confirmed 73201187 Problem Dysthymic disorder F34.1 Active confirmed 7 8498156 ALLERGIES Allergen (clinical drug ingredient) Drug/Non Drug Allergy do cumented on EMR Reaction Allergy Type Onset Date Status amoxicillin Amoxicillin([facility] Code:[address]-92) vomiting Drug Aller gy Active ENCOUNTERS from 1994 to 2021-04-16 Encounter Location Date Provider Diagnosis [facility] [address] [facility] [phone] [place] [address] Mar, Joya Carlos IMMUNIZATIONS Vaccine Route Administration Date Status TDAP [...] Education Language: Question Answer Notes Languages spoken: Chilean sign. Mother deaf Religious: Question Answer Notes Religious 33 None Domestic Violence: Question Answer Notes [...] 6 hrs for 90 days May, Active Prazosin HCl 1 MG 1 capsule at bedtime for thr ee days, then 2 caps at bedtime Orally Once a day for 30 day(s) November, Active ZyrTEC Allergy 10 MG 1 tablet Orally Once a day for 30 day(s) Sep, Not-Taking Omeprazole 20 MG 1 capsule 30 minutes before morning meal Orally Once a day for 30 day(s) Sep, Not-Taking Adderall 10 MG 1 tablet Orally Twice a day for 30 days Mar, Active Jolessa 0.15-0.03 MG 1 tablet Orally Once a day for 91 day(s) Oct, Active PROCEDURES No Information RESULTS No Results [...] Orally Twice a day for 30 days Mar, Next Appt Details Provider Name:Jackelyn Khoury, 2021-04-23 03:00:00 PM, [address] [facility], , [place], [address] Insurance Providers Payer Name Payer Address Payer Phone Insured Name Patient Relati onship to Insured Coverage Start Date Coverage End Date [facility] COMM[facility] [address] [facility] [phone] GISELLE BRIGGS
--- OUTSIDE RECORDS SUMMARY | 2021-05-23 06:15 | CCD | Continuity of Care Document ---
Author Author Jose C MENEZES MD Organization Unknown Address [address] [address] Phone [phone] Care Team Providers Care Explosives Engineer Name Role Phone Candi Buckner AUTM [phone] Rin Grace M.D. AUTM [phone] Problems Description No Information Available Social History [...] 50mg Tablets Kailyn Ann M.D. History Medications [place] 5-325mg Tablets 1 tab every 4 hours as needed pain 45tabs Alejandro Menezes MD 01/03/2021 - Immunizations Description No Information Available Vital Signs Date Vital Result Comment 04/09/2021 3:03pm Height 67 inches 5'7" Weight 203.00 lb BMI (Body Mass Index) 31.8 kg/m2 [place] Body Weight 135 lb Weight 92.081 kg BSA (Body Surface Area) 2.04 m2 01/10/2021 2:08pm Height 67 inches 5'7" Weight 192.00 lb BMI (Body Mass Index) 30.1 kg/m2 [place] Body Weight 135 lb Weight 87.091 kg BSA (Body Surface Area) 1.99 m2 Results Test Acquired Date Facility Test Result H/L Range Note Laboratory test finding 01/03/2021 [facility] [address] [place] [address] [phone] Pathology Request For Service (SEE NOTE) 1 [...] smooth. Sectioning reveals deep crypts containing debris, personal financial representative in one. B - Received in formalin labeled "left tonsil" is a 3.7 x 2.2 x 2 cm. tonsil. The mucosal lining is smooth. Sectioning reveals deep crypts containing debris, personal financial representative in one. - 01/04/2021 - 0715 Signed Iram Hoyos MD 01/04/2021 1501 Procedures Date Code Description Status 01/10/2021 42809 Office/Outpatient Established Lo w MDM 20-29 Min Completed 01/03/2021 96142 Tonsillectomy > 12 Years Complet ed 11/23/2020 51725 Office/Outpatient New Low MDM 30 -44 Minutes Completed 11/23/2020 48946 Laryngoscopy Flexible Fiberoptic Diagnostic Completed Medical Devices Description No Information Available Encounters Type Date Location Provider Dx Diagnosis Office Visit 01/10/2021 2:00p [facility] Don Gray II, PA-C J35.01 Chronic tonsillitis J34.2 Deviated nasal septum Office Visit 11/23/2020 2:10p [facility] Alejandro Menezes MD J32.4 Chronic pansinusitis J35.01 Chronic tonsillitis Assessments Date Code Description Provider 04/09/2021 J30.9 Allergic rhinitis, unspecified N stalin Menezes MD 04/09/2021 J34.2 Deviated nasal septum Alejandro rodriguez MD 01/10/2021 J35.01 Chronic tonsillitis Don Gray II, PA-C 01/10/2021 J34.2 Deviated nasal septum Don Fernández ac II, [place] 01/03/2021 J35.01 Chronic tonsillitis Alejandro Menezes MD 11/23/2020 J32.4 Chronic pansinusitis Alejandro Menezes MD 11/23/2020 J35.01 Chronic tonsillitis Alejandro Menezes MD Plan of Treatment No Information Available Functional Status Description No Information Available Mental Status Description No Information Available Referrals Refer to Dr Reason for Referral Status Appt Date Alejandro Menezes M.D. BELT P[facility] GLO[facility] SENSATION ASYMMETR Y OF TONSILS REF M EMILY INS [facility] COMM PLN THIS PLAN DOES NOT REQ AUTH Scheduled 11/23/[address] [place] [address] [phone]
--- OUTSIDE RECORDS SUMMARY | 2021-05-23 06:15 | CCD ---
Author Author [facility] [employer] [facility] Organization [facility] Address Unknown Phone Unavailable Care Team Providers Care Event Marketing Specialist Name Role Phone Jackelyn Khoury Unavailable PROBLEMS Type Condition ICD9-CM Code CPP41-QQ Code Onset Dates Condition S tatus W/U Status Risk SNOMED Code Notes Problem Attention deficit disorder, unspecified hyperactivity presence F98.8 Active confirmed 72366095 Problem Dysthymia F34.1 Active confirmed 17652639 Problem Allergic rhinitis, unspecified seasonality, unspecifie d trigger J30.9 Active confirmed 11254677 Problem Asymmetry of tonsils J35.8 Active confirmed 181396024 Problem Class 2 obesity due to exces s calories without serious comorbidity in adult, unspecified BMI E66.09 Active confirmed 1857543 01 Problem Attention deficit hyperactivity disorder (ADHD), unspecified ADHD type F90.9 Active confirmed 891943983 Problem Severe episode of recurrent major depressive disorder, without psychotic features F33.2 Active confirmed 97448221 Problem Moderate episode of recurrent major depressive disorder F33.1 Active confirmed 505818650 Problem Post-traumatic stress disorder, unspecified F43.10 Active confirmed 62585322 Problem Dysthymic disorder F34.1 Active confirmed 7 0777000 ALLERGIES Allergen (clinical drug ingredient) Drug/Non Drug Allergy do cumented on EMR Reaction Allergy Type Onset Date Status amoxicillin Amoxicillin([facility] Code:[address]-04) vomiting Drug Aller gy Active ENCOUNTERS from 1994 to 2021-04-23 Encounter Location Date Provider Diagnosis [address] [place] [address] Mar, Jackelyn Khoury Post-traumatic stres s disorder, unspecified F43.10 and Dysthymia F34.1 IMMUNIZATIONS Vaccine Route Administration Date Status [...] Education Language: Question Answer Notes Languages spoken: Niuean sign. Mother deaf Catholic: Question Answer Notes Catholic 33 None Domestic Violence: Question Answer Notes [...] Notes Treatment Notes Treatm ent Clinical Notes Mar, Post-traumatic stress disorder, unspecified (ICD -10 - F43.10) Jose C attended scheduled follow up appointment. Presents for tx with ongoing hx of anxious and depressive symptoms. Supported Jose C in processing time since previous appointment using cognitive and interpersonal therapy. Jose C is scheduled for follow up appointment for psychotherapy 05/14/21 with Ania Zuleta LMSW, aware to call for earlier appointment if needed and to use ER for mental health emergencies. Mar, Dysthymia (ICD-10 - F34.1) PLAN OF TREATMENT Medication Medication Name Sig Start Date Stop Date Prazosin HCl 1 MG 1 capsule at bedtime for thr ee days, then 2 caps at bedtime Orally Once a day for 30 day(s) November, Adderall 10 MG 1 tablet Orally Twice a day for 30 days Mar, Treatment Notes Assessment Notes Clinical Notes Post-traumatic stress disorder, unspecified Jose C attended scheduled follow up appointment. Presents for tx with ongoing hx of anxious and depressive symptoms. Supported Jose C in processing time since previous appointment using cognitive and interpersonal therapy.Jose C is scheduled for follow up appointment for psychotherapy 05/14/21 with Ania Zuleta LMSW, aware to call for earlier appointment if needed and to use ER for mental health emergencies. Next Appt Details Provider Name:Ania Zuleta, 2021-05-14 03:00:00 PM, [address] [facility], , [place], [address] Insurance Providers Payer Name Payer Address Payer Phone Insured Name Patient Relati onship to Insured Coverage Start Date Coverage End Date [facility] [address] [facility] [address] JOSE C BRIGGS
--- OUTSIDE RECORDS SUMMARY | 2021-05-23 06:15 | CCD ---
Author Author [facility] [employer] [facility] Organization [facility] Address Unknown Phone Unavailable Care Team Providers Care Fitness And Wellness Instructor Name Role Phone Jackelyn Khoury Unavailable PROBLEMS Type Condition ICD9-CM Code WNM09-MM Code Onset Dates Condition S tatus W/U Status Risk SNOMED Code Notes Problem Attention deficit disorder, unspecified hyperactivity presence F98.8 Active confirmed 58577769 Problem Dysthymia F34.1 Active confirmed 13724656 Problem Allergic rhinitis, unspecified seasonality, unspecifie d trigger J30.9 Active confirmed 03155929 Problem Asymmetry of tonsils J35.8 Active confirmed 100329271 Problem Class 2 obesity due to exces s calories without serious comorbidity in adult, unspecified BMI E66.09 Active confirmed 5167003 01 Problem Attention deficit hyperactivity disorder (ADHD), unspecified ADHD type F90.9 Active confirmed 759643531 Problem Severe episode of recurrent major depressive disorder, without psychotic features F33.2 Active confirmed 60607724 Problem Moderate episode of recurrent major depressive disorder F33.1 Active confirmed 451601533 Problem Post-traumatic stress disorder, unspecified F43.10 Active confirmed 17567337 Problem Dysthymic disorder F34.1 Active confirmed 7 6923217 ALLERGIES Allergen (clinical drug ingredient) Drug/Non Drug Allergy do cumented on EMR Reaction Allergy Type Onset Date Status amoxicillin Amoxicillin([facility] Code:[address]-94) vomiting Drug Aller gy Active ENCOUNTERS from 1994 to 2021-04-13 Encounter Location Date Provider Diagnosis [address] [place] [address] 16 Mar, 2021 Jackelyn Khoury Post-traumatic stres s disorder, unspecified [...] Education Language: Question Answer Notes Languages spoken: Liberian sign. Mother deaf Anabaptism: Question Answer Notes Anabaptism 33 None Domestic Violence: Question Answer Notes [...] scheduled for follow up appointment for psychotherapy 04/23/21 at 3pm, aware to call for earlier [...] Twice a day for 30 days Feb, Treatment Notes Assessment Notes Clinical Notes Post-traumatic stress disorder, unspecified Jose C attended scheduled follow up appointment. Presents for tx with ongoing hx of anxious and depressive symptoms. Supported Jose C in processing time since previous appointment using cognitive and interpersonal therapy.Jose C is scheduled for follow up appointment for psychotherapy 04/23/21 at 3pm, aware to call for earlier appointment if needed and to use ER for mental health emergencies. Next Appt Details Provider Name:Jackelyn Khoury, 2021-04-23 03:00:00 PM, [address] [facility], , [place], [address] Insurance Providers Payer Name Payer Address Payer Phone Insured Name Patient Relati onship to Insured Coverage Start Date Coverage End Date [facility] COMMUN[facility] PLAN [facility] [address] [facility] [address] JOSE C BRIGGS
--- OUTSIDE RECORDS SUMMARY | 2021-05-23 06:15 | CCD | Continuity of Care Document ---
Author Author Jose C MENEZES MD Organization Unknown Address [address] [address] Phone [phone] Care Team Providers Care Tire Service Supervisor Name Role Phone Candi Buckner AUTM [phone] Rin Grace M.D. AUTM [phone] Problems Description No Information Available Social History [...] 50mg Tablets Kailyn Ann M.D. History Medications [place] 5-325mg Tablets 1 tab every 4 hours as needed pain 45tabs Alejandro Menezes MD 01/03/2021 - Immunizations Description No Information Available Vital Signs Date Vital Result Comment 04/09/2021 3:03pm Height 67 inches 5'7" Weight 203.00 lb BMI (Body Mass Index) 31.8 kg/m2 [place] Body Weight 135 lb Weight 92.081 kg BSA (Body Surface Area) 2.04 m2 01/10/2021 2:08pm Height 67 inches 5'7" Weight 192.00 lb BMI (Body Mass Index) 30.1 kg/m2 [place] Body Weight 135 lb Weight 87.091 kg BSA (Body Surface Area) 1.99 m2 Results Test Acquired Date Facility Test Result H/L Range Note Laboratory test finding 01/03/2021 [facility] Main Lab [address] [place] [address] [phone] Pathology Request For Service (SEE NOTE) 1 [...] smooth. Sectioning reveals deep crypts containing debris, field marketing representative in one. B - Received in formalin labeled "left tonsil" is a 3.7 x 2.2 x 2 cm. tonsil. The mucosal lining is smooth. Sectioning reveals deep crypts containing debris, field marketing representative in one. - 01/04/2021 - 0715 Signed Iram Hoyos MD 01/04/2021 1501 Procedures Date Code Description Status 01/10/2021 10960 Office/Outpatient Established Lo w MDM 20-29 Min Completed 01/03/2021 66301 Tonsillectomy > 12 Years Complet ed 11/23/2020 25985 Office/Outpatient New Low MDM 30 -44 Minutes Completed 11/23/2020 62676 Laryngoscopy Flexible Fiberoptic Diagnostic Completed Medical Devices Description No Information Available Encounters Type Date Location Provider Dx Diagnosis Office Visit 01/10/2021 2:00p [facility] Don Gray II, PA-C J35.01 Chronic tonsillitis J34.2 Deviated nasal septum Office Visit 11/23/2020 2:10p [facility] Alejandro Menezes MD J32.4 [...] Referral Status Appt Date Alejandro Menezes M.D. SAMPLE TESTER GRINDER GLOBUS SENSATION ASYMMETR Y OF TONSILS REF M EMILY INS [facility] COMM PLN THIS PLAN DOES NOT REQ AUTH Scheduled 11/23/[address] [place] [address] [phone]
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
--- OUTSIDE RECORDS SUMMARY | 2021-05-23 06:15 | CCD | Continuity of Care Document ---
Author Author Jose C MENEZES MD Organization Unknown Address [address] [address] Phone [phone] Care Team Providers Care Potato Chip Cooker Machine Name Role Phone Candi Buckner AUTM [phone] Rin Grace M.D. AUTM [phone] Problems Description No Information Available Social History [...] 50mg Tablets Kailyn Ann M.D. History Medications [place] 5-325mg Tablets 1 tab every 4 hours as needed pain 45tabs Alejandro Menezes MD 01/03/2021 - Immunizations Description No Information Available Vital Signs Date Vital Result Comment 04/09/2021 3:03pm Height 67 inches 5'7" Weight 203.00 lb BMI (Body Mass Index) 31.8 kg/m2 [place] Body Weight 135 lb Weight 92.081 kg BSA (Body Surface Area) 2.04 m2 01/10/2021 2:08pm Height 67 inches 5'7" Weight 192.00 lb BMI (Body Mass Index) 30.1 kg/m2 [place] Body Weight 135 lb Weight 87.091 kg BSA (Body Surface Area) 1.99 m2 Results Test Acquired Date Facility Test Result H/L Range Note Laboratory test finding 01/03/2021 [facility] Main Lab [address] [place] [address] [phone] Pathology Request For Service (SEE NOTE) 1 [...] smooth. Sectioning reveals deep crypts containing debris, pharmaceutical sales representative in one. B - Received in formalin labeled "left tonsil" is a 3.7 x 2.2 x 2 cm. tonsil. The mucosal lining is smooth. Sectioning reveals deep crypts containing debris, pharmaceutical sales representative in one. - 01/04/2021 - 0715 Signed Iram Hoyos MD 01/04/2021 1501 Procedures Date Code Description Status 01/10/2021 81646 Office/Outpatient Established Lo w MDM 20-29 Min Completed 01/03/2021 93874 Tonsillectomy > 12 Years Complet ed 11/23/2020 51641 Office/Outpatient New Low MDM 30 -44 Minutes Completed 11/23/2020 57206 Laryngoscopy Flexible Fiberoptic Diagnostic Completed Medical Devices Description No Information Available Encounters Type Date Location Provider Dx Diagnosis Office Visit 01/10/2021 2:00p [facility] Don Gray II, PA-C J35.01 Chronic tonsillitis J34.2 Deviated nasal septum Office Visit 11/23/2020 2:10p [facility] Alejandro Menezes MD J32.4 Chronic [...] Referral Status Appt Date Alejandro Menezes M.D. PHOTO STYLIST GLOBUS SENSATION ASYMMETR Y OF TONSILS REF M EMILY INS [facility] COMM PLN THIS PLAN DOES NOT REQ AUTH Scheduled 11/23/[address] [place] [address] [phone]
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
--- OUTSIDE RECORDS SUMMARY | 2021-05-23 06:16 | CCD ---
Author Author [facility] Address Unknown Phone Unavailable Care Team Providers Care Family Law Mediator Name Role Phone LAHSAE DELEON Unavailable Unavailable Jigar Grace MD Unavailable Unavailable Jigar Grace MD Unavailable Unavailable Jigar Grace MD Unavailable Unavailable Jigar Grace MD Unavailable Unavailable Jigar Grace MD Unavailable Unavailable Jigar Grace MD Unavailable Unavailable Jigar Grace MD Unavailable Unavailable Jigar Grace MD Unavailable Unavailable Jigar Grace MD Unavailable Unavailable Jigar Grace MD Unavailable Unavailable Jigar Grace MD Unavailable Unavailable Jigar Grace MD Unavailable Unavailable Jigar Grace MD Unavailable Unavailable Jigar Grace MD Unavailable Unavailable Jigar Grace MD Unavailable Unavailable Jigar Grace MD Unavailable Unavailable Jigar Grace MD Unavailable Unavailable Jigar Grace MD Unavailable Unavailable Jigar Grace MD Unavailable Unavailable Jigar Grace MD Unavailable Unavailable Jigar Grace MD Unavailable Unavailable Jigar Grace MD Unavailable Unavailable Jigar Grace MD Unavailable Unavailable Jigar Grace MD Unavailable Unavailable Jigar Grace MD Unavailable Unavailable Jigar Grace MD Unavailable Unavailable Jigar Grace MD Unavailable Unavailable Jigar Grace MD Unavailable Unavailable Jigar Grace MD Unavailable Unavailable Jigar Grace MD Unavailable Unavailable Jigar Grace MD Unavailable Unavailable Jigar Grace MD Unavailable Unavailable Jigar Grace MD Unavailable Unavailable Jigar Grace MD Unavailable Unavailable Alejandro Menezes MD Unavailable Unavailable Alejandro Menezes MD Unavailable Unavailable Alejandro Menezes MD Unavailable Unavailable Alejandro Menezes MD Unavailable Unavailable Alejandro Menezes MD Unavailable Unavailable BuffaloAlejandro rodriguez MD Unavailable Unavailable BuffaloAlejandro rodriguez MD Unavailable Unavailable BuffaloAlejandro MD Unavailable Unavailable BuffaloAlejandro MD Unavailable Unavailable BuffaloAlejandro MD Unavailable Unavailable BuffaloAlejandro MD Unavailable Unavailable BuffaloAlejandro MD Unavailable Unavailable BuffaloAlejandro MD Unavailable Unavailable BuffaloAlejandro MD Unavailable Unavailable BuffaloAlejandro MD Unavailable Unavailable BuffaloAlejandro MD Unavailable Unavailable BuffaloAlejandro MD Unavailable Unavailable BuffaloAlejandro MD Unavailable Unavailable Buffalo Alejandro MD Unavailable Unavailable BuffaloAlejandro rodriguez MD Unavailable Unavailable BuffaloAlejandro MD Unavailable Unavailable Buffalo Alejandro MD Unavailable Unavailable Buffalo Alejandro MD Unavailable Unavailable Buffalo Alejandro MD Unavailable Unavailable Buffalo Alejandro MD Unavailable Unavailable BuffaloAlejandro MD Unavailable Unavailable BuffaloAlejandro MD Unavailable Unavailable BuffaloAlejandro MD Unavailable Unavailable BuffaloAlejandro MD Unavailable Unavailable Buffalo Alejandro MD Unavailable Unavailable TURRIN, RENNY Unavailable Unavailable TURRIN, RENNY Unavailable Unavailable TURRIN, RENNY Unavailable Unavailable CHARMAINERIN, RENNY Unavailable Unavailable Jigar CAR MD Unavailable Unavailable Jigar CAR MD Unavailable Unavailable Jigar CAR MD Unavailable Unavailable Jigar CAR MD Unavailable Unavailable Jigar CAR MD Unavailable Unavailable Jigar CAR MD Unavailable Unavailable Jigar CAR MD Unavailable Unavailable Jigar CAR MD Unavailable Unavailable Jigar CAR MD Unavailable Unavailable Jigar CAR MD Unavailable Unavailable Jigar CAR MD Unavailable Unavailable Jigar CAR MD Unavailable Unavailable Jigar CAR MD Unavailable Unavailable Jigar CAR MD Unavailable Unavailable Jigar CAR MD Unavailable Unavailable Jigar CAR MD Unavailable Unavailable Jigar CAR MD Unavailable Unavailable Jigar CAR MD Unavailable Unavailable Jigar CAR MD Unavailable Unavailable Jigar CAR MD Unavailable Unavailable Jigar CAR MD Unavailable Unavailable Jigar CAR MD Unavailable Unavailable Jigar CAR MD Unavailable Unavailable Jigar CAR MD Unavailable Unavailable Jigar CAR MD Unavailable Unavailable Jigar CAR MD Unavailable Unavailable Jigar CAR MD Unavailable Unavailable Jigar CAR MD Unavailable Unavailable Jigar CAR MD Unavailable Unavailable Jigar CAR MD Unavailable Unavailable Jigar CAR MD Unavailable Unavailable Jigar CAR MD Unavailable Unavailable Jigar CAR MD Unavailable Unavailable Jigar CAR MD Unavailable Unavailable Jigar CAR MD Unavailable Unavailable Jigar CAR MD Unavailable Unavailable Jigar CAR MD Unavailable Unavailable Jigar CAR MD Unavailable Unavailable Jigar CAR MD Unavailable Unavailable Jigar CAR MD Unavailable Unavailable Jigar CAR MD Unavailable Unavailable Jigar CAR MD Unavailable Unavailable Jigar CAR MD Unavailable Unavailable Jigar CAR MD Unavailable Unavailable Jigar CAR MD Unavailable Unavailable Jigar CAR MD Unavailable Unavailable Jigar CAR MD Unavailable Unavailable Jigar CAR MD Unavailable Unavailable Jigar CAR MD Unavailable Unavailable Marina II, Don PA Unavailable Unavailable Marina II, Don PA Unavailable Unavailable Marina II, Don PA Unavailable Unavailable Marina II, Don PA Unavailable Unavailable Marina II, Don PA Unavailable Unavailable Marina II, Don PA Unavailable Unavailable Marina II, Don PA Unavailable Unavailable Marina II, Don PA Unavailable Unavailable Marina II, Don PA Unavailable Unavailable Marina II, Don PA Unavailable Unavailable Marina II, Don PA Unavailable Unavailable Marina II, Don PA Unavailable Unavailable Marina II, Don PA Unavailable Unavailable Marina II, Don PA Unavailable Unavailable Marina II, Don PA Unavailable Unavailable Marina II, Don PA Unavailable Unavailable Marina II, Don PA Unavailable Unavailable Marina II, Don PA Unavailable Unavailable Marina II, Don PA Unavailable Unavailable Re-disclosure Warning The records that you are about to access may contain information from federally-assisted alcohol or drug abuse programs. If such information is present, then the following federally mandated warning applies: This information has been disclosed to you from records protected by federal confidentiality rules (42 CFR part 2). The federal rules prohibit you from making any further disclosure of this information unless further disclosure is expressly permitted by the written consent of the person to whom it pertains or as otherwise permitted by 42 CFR part 2. A general authorization for the release of medical or other information is NOT sufficient for this purpose. The Federal rules restrict any use of the information to criminally investigate or prosecute any alcohol or drug abuse patient.The records that you are about to access may contain highly sensitive health information, the redisclosure of which is protected by Article 27-F of the [facility] Public Health law. If you continue you may have access to information: Regarding HIV / AIDS; Provided by facilities licensed or operated by the [facility] Office of Mental Health; or Provided by the [facility] Office for People With Developmental Disabilities. If such information is present, then the following [facility] mandated warning applies: This information has been disclosed to you from confidential records which are protected by state law. State law prohibits you from making any further disclosure of this information without the specific written consent of the person to whom it pertains, or as otherwise permitted by law. Any unauthorized further disclosure in violation of state law may result in a fine or longterm sentence or both. A general authorization for the release of medical or other information is NOT sufficient authorization for further disc losure. Allergies and Adverse Reactions Type Description Substance Reaction Status Data Source(s ) No Known Drug Allergies No Known Drug Allergies [facility] No Known Environmental Allergies No Known Environmental [facility] Encounters Encounter Providers Location Date Indications Data Source(s ) Unknown [address] [facility], [facility] [address] 05/15/2021 12:00:00 AM EDT eCW1 ([facility]) Unknown [address] [facility] [address] 05/14/2021 12:00:00 AM EDT eCW1 ([facility]) Outpatient Attender: LASHAE Waltonant: Rin Grace MD 04/25/2021 11:04:00 AM EDT - 04/25/2021 12:04:[address] [facility] ([facility]) [facility] Scheduled Visit [address] [place] [address] 04/23/2021 12:00:00 AM EDT eCW1 ([facility]) Unknown [address] [facility] [address] 04/14/2021 12:00:00 AM EDT eCW1 ([facility]) ([facility]) [facility] Scheduled Visit [address] [place] [address] 04/12/2021 12:00:00 AM EDT eCW1 ([facility]) Outpatient Attender: Alejandro Logan/Clif/Gregorio/Heather díaz 04/09/2021 03:10:00 PM EDT MEDENT ([facility]) Unknown [address] [facility] [id number] 03/16/2021 12:00:00 AM EDT eCW1 ([facility]) Outpatient [address] [facility] [address] 03/06/2021 12:00:00 AM EDT eCW1 ([facility]) ([facility]) [facility] Scheduled Visit [address] [place] [address] 03/06/2021 12:00:00 AM EDT eCW1 ([facility]) ([facility]) [facility] Scheduled Visit [address] [place] [address] 03/01/2021 12:00:00 AM EDT eCW1 ([facility]) ([facility]) [facility] Scheduled Visit [address] [place] [address] 02/22/2021 12:00:00 AM EDT eCW1 ([facility]) Unknown [address] [facility] [id number] 02/11/2021 12:00:00 AM EDT eCW1 ([facility]) ([facility]) [facility] Scheduled Visit [address] [place] [address] 02/01/2021 12:00:00 AM EDT eCW1 ([facility]) ([facility]) [facility] Scheduled Visit [address] [place] [address] 01/25/2021 12:00:00 AM EDT eCW1 ([facility]) Emergency Attender: RENNY Rodgerssultant: GRACIE Amaro MD 01/24/2021 08:17:00 AM EDT - 01/24/2021 11:15:[address] [facility] Patient discharged. ([facility]) [facility] Scheduled Visit [address] [place] [phone] 01/15/2021 12:00:00 AM EDT eCW1 ([facility]) Unknown [address] [facility] [address] 01/12/2021 12:00:00 AM EDT eCW1 ([facility]) Outpatient [address] [facility] [id number] 01/11/2021 12:00:00 AM EDT eCW1 ([facility]) Outpatient Attender: Don Logan/Clif/Gregorio/Ric dl 01/10/2021 02:00:00 PM EDT MEDENT ([facility]) ([facility]) [facility] Scheduled Visit [address] [place] [phone] 01/08/2021 12:00:00 AM EDT eCW1 ([facility]) ([facility]) [facility] Scheduled Visit [address] [place] [address] 01/01/2021 12:00:00 AM EDT eCW1 ([facility]) Unknown [address] [facility] [address] 12/20/2020 12:00:00 AM EDT eCW1 ([facility]) ([facility]) [facility] Scheduled Visit [address] [place] [address] 12/18/2020 12:00:00 AM EDT eCW1 ([facility]) Outpatient Attender: GRACIE CAR MDConsultant: GRACIE Amaro MD 12/14/2020 12:10:00 PM EDT - 12/14/2020 01:10:[address] [facility] Outpatient [address] [facility] [id number] 12/14/2020 12:00:00 AM EDT eCW1 ([facility]) Unknown [address] [facility], [facility] [address] 12/11/2020 12:00:00 AM EDT eCW1 ([facility]) ([facility]) Be[facility] Scheduled Visit [address] [place] [address] 12/11/2020 12:00:00 AM EDT eCW1 ([facility]) ([facility]) [facility] Scheduled Visit [address] [place] [address] 12/04/2020 12:00:00 AM EDT eCW1 ([facility]) Outpatient Attender: Alejandro Logan/Clif/Gregorio/Heather díaz 11/23/2020 02:10:00 PM EDT MEDENT ([facility]) ([facility]) [facility] Scheduled Visit [address] [place] [address] 11/13/2020 12:00:00 AM EDT eCW1 ([facility]) Unknown [address] [facility] [address] 11/07/2020 12:00:00 AM EDT eCW1 ([facility]) ([facility]) Behave Health Scheduled Visit [address] [place] [address] 11/06/2020 12:00:00 AM EDT eCW1 ([facility]) ([facility]) [facility] Scheduled Visit [address] [place] [address] 10/30/2020 12:00:00 AM EDT eCW1 ([facility]) ([facility]) [facility] Scheduled Visit [address] [place] [address] 10/23/2020 12:00:00 AM EDT eCW1 ([facility]) Outpatient [address] [facility] [place] [address] 10/23/2020 12:00:00 AM EDT eCW1 ([facility]) ([facility]) Behave Health Scheduled Visit [address] [place] [address] 10/16/2020 12:00:00 AM EDT eCW1 ([facility]) Unknown [address] [facility] [address] 10/08/2020 12:00:00 AM EST eCW1 ([facility]) Outpatient [address] [facility] [place] [address] 09/26/2020 12:00:00 AM EST eCW1 ([facility]) Unknown [address] [facility] [address] 08/30/2020 12:00:00 AM EST eCW1 ([facility]) Unknown [address] [facility] [place] [address] 07/25/2020 12:00:00 AM EST eCW1 ([facility]) Unknown [address] [facility] [address] 06/27/2020 12:00:00 AM EST eCW1 ([facility]) Unknown [address] [facility] [place] [address] 06/26/2020 12:00:00 AM EST eCW1 ([facility]) Outpatient [address] [facility] [address] 06/08/2020 12:00:00 AM EST eCW1 ([facility]) Unknown [address] [facility] [address] 05/24/2020 12:00:00 AM EDT eCW1 ([facility]) Unknown [address] [facility] [address] 04/28/2020 12:00:00 AM EDT eCW1 ([facility]) Unknown [address] [facility] [address] 04/18/2020 12:00:00 AM EDT eCW1 ([facility]) Unknown [address] [facility] [address] 04/18/2020 12:00:00 AM EDT eCW1 ([facility]) Immunizations Vaccine Date Status Description Data Source(s) New in 2011. IIV4 06/08/2020 02:04:00 PM EST completed eCW1 ([facility]) New in 2011. IIV4 06/08/2020 02:04:00 PM EST completed eCW1 ([facility]) New in 2011. IIV4 06/08/2020 02:04:00 PM EST completed eCW1 ([facility]) New in 2011. IIV4 06/08/2020 02:04:00 PM EST completed eCW1 ([facility]) New in 2011. IIV4 06/08/2020 02:04:00 PM EST completed eCW1 ([facility]) New in 2011. IIV4 06/08/2020 02:04:00 PM EST completed eCW1 ([facility]) New in 2011. IIV4 06/08/2020 02:04:00 PM EST completed eCW1 ([facility]) New in 2011. IIV4 06/08/2020 02:04:00 PM EST completed eCW1 ([facility]) New in 2011. IIV4 06/08/2020 02:04:00 PM EST completed eCW1 ([facility]) New in 2011. IIV4 06/08/2020 02:04:00 PM EST completed eCW1 ([facility]) New in 2011. IIV4 06/08/2020 02:04:00 PM EST completed eCW1 ([facility]) New in 2011. IIV4 06/08/2020 02:04:00 PM EST completed eCW1 ([facility]) New in 2011. IIV4 06/08/2020 02:04:00 PM EST completed eCW1 ([facility]) New in 2011. IIV4 06/08/2020 02:04:00 PM EST completed eCW1 ([facility]) New in 2011. II06/08/2020 02:04:00 PM EST completed eCW1 ([facility]) New in 2011. IIV4 06/08/2020 02:04:00 PM EST completed eCW1 ([facility]) New in 2011. II06/08/2020 02:04:00 PM EST completed eCW1 ([facility]) New in 2011. II4 06/08/2020 02:04:00 PM EST completed eCW1 ([facility]) New in 2011. II06/08/2020 02:04:00 PM EST completed eCW1 ([facility]) New in 2011. II4 06/08/2020 02:04:00 PM EST completed eCW1 ([facility]) New in 2011. II4 06/08/2020 02:04:00 PM EST completed eCW1 ([facility]) New in 2011. IIV4 06/08/2020 02:04:00 PM EST completed eCW1 ([facility]) New in 2011. IIV4 06/08/2020 02:04:00 PM EST completed eCW1 ([facility]) New in 2011. IIV4 06/08/2020 02:04:00 PM EST completed eCW1 ([facility]) New in 2011. IIV4 06/08/2020 02:04:00 PM EST completed eCW1 ([facility]) New in 2011. IIV4 06/08/2020 02:04:00 PM EST completed eCW1 ([facility]) New in 2011. II4 06/08/2020 02:04:00 PM EST completed eCW1 ([facility]) New in 2011. IIV4 06/08/2020 02:04:00 PM EST completed eCW1 ([facility]) New in 2011. II06/08/2020 02:04:00 PM EST completed eCW1 ([facility]) New in 2011. IIV4 06/08/2020 02:04:00 PM EST completed eCW1 ([facility]) New in 2011. II06/08/2020 02:04:00 PM EST completed eCW1 ([facility]) New in 2011. II06/08/2020 02:04:00 PM EST completed eCW1 ([facility]) New in 2011. II06/08/2020 02:04:00 PM EST completed eCW1 ([facility]) New in 2011. II06/08/2020 02:04:00 PM EST completed eCW1 ([facility]) New in 2011. II06/08/2020 02:04:00 PM EST completed eCW1 ([facility]) New in 2011. II06/08/2020 02:04:00 PM EST completed eCW1 ([facility]) New in 2011. II06/08/2020 02:04:00 PM EST completed eCW1 ([facility]) New in 2011. II06/08/2020 02:04:00 PM EST completed eCW1 ([facility]) Medications Medication Brand Name Start Date Product Form Dose Route Admi nistrative Instructions Pharmacy Instructions Status Indications Reaction Description Data Source(s) Amphetamine aspartate 2.5 MG / Amphetami ne Sulfate 2.5 MG / Dextroamphetamine saccharate 2.5 MG / Dextroamphetamine Sulfate 2.5 MG Oral Tablet 10 mg DEXTROAMPHETAMINE/AMPHETAMINE 05/16/2021 12:00:00 AM EDT tablet 60 TAKE ONE TABLET BY MOUTH TWICE A DAY. MAX OF 2 TABS/DAY TAKE ONE TABLET BY MOUTH TWICE A DAY. MAX OF 2 TABS/DAY SOLD: 05/16/2021 [facility] Amphetamine aspartate 2.5 MG / Amphetami ne Sulfate 2.5 MG / Dextroamphetamine saccharate 2.5 MG / Dextroamphetamine Sulfate 2.5 MG Oral Tablet [Adderall] Adderall 10 MG Adderall 10 MG 05/16/2021 12:00:00 AM EDT 1.0 {tablet} active Adderall 10 MG eCW1 ([facility]) 1 mg 05/16/2021 12:00:00 AM EDT capsule 60 TAKE ONE CAPSULE BY MOUTH AT BEDTIME FOR 3 DAYS THEN TAKE TWO CAPSULES BY MOUTH AT BEDTIME TAKE ONE CAPSULE BY MOUTH AT BEDTIME FOR 3 DAYS THEN TAKE TWO CAPSULES BY MOUTH AT BEDTIME SOLD: 05/16/2021 [facility] Amphetamine aspartate 2.5 MG / Amphetami ne Sulfate 2.5 MG / Dextroamphetamine saccharate 2.5 MG / Dextroamphetamine Sulfate 2.5 MG Oral Tablet [Adderall] Adderall 10 MG Adderall 10 MG 05/16/2021 12:00:00 AM EDT 1.0 {tablet} active Adderall 10 MG eCW1 ([facility]) 2 mg 04/19/2021 12:00:00 AM EDT tablet 30 TAKE ONE TABLET BY MOUTH EVERY DAY TAKE ONE TABLET BY MOUTH EVERY DAY SOLD: 05/16/2021 [facility] 0.5 mg 04/19/2021 12:00:00 AM EDT tablet 60 TAKE ONE TABLET BY MOUTH TWICE A DAY NEEDED MAXIMUM DAILY DOSE = 2 TAKE ONE TABLET BY MOUTH TWICE A DAY NEEDED MAXIMUM DAILY DOSE = 2 SOLD: 05/03/2021 [facility] 2 mg 04/19/2021 12:00:00 AM EDT tablet 30 TAKE ONE TABLET BY MOUTH EVERY DAY TAKE ONE TABLET BY MOUTH EVERY DAY SOLD: 04/19/2021 [facility] Amphetamine aspartate 2.5 MG / Amphetami ne Sulfate 2.5 MG / Dextroamphetamine saccharate 2.5 MG / Dextroamphetamine Sulfate 2.5 MG Oral Tablet [Adderall] Adderall 10 MG Adderall 10 MG 04/16/2021 12:00:00 AM EDT 1.0 {tablet} active Adderall 10 MG eCW1 ([facility]) Amphetamine aspartate 2.5 MG / Amphetami ne Sulfate 2.5 MG / Dextroamphetamine saccharate 2.5 MG / Dextroamphetamine Sulfate 2.5 MG Oral Tablet 10 mg DEXTROAMPHETAMINE/AMPHETAMINE 04/16/2021 12:00:00 AM EDT tablet 60 TAKE ONE TABLET BY MOUTH TWICE A DAY MAXIMUM DAILY DOSE = 2 TAKE ONE TABLET BY MOUTH TWICE A DAY MAXIMUM DAILY DOSE = 2 SOLD: 04/16/2021 [facility] Amphetamine aspartate 2.5 MG / Amphetami ne Sulfate 2.5 MG / Dextroamphetamine saccharate 2.5 MG / Dextroamphetamine Sulfate 2.5 MG Oral Tablet [Adderall] Adderall 10 MG Adderall 10 MG 04/16/2021 12:00:00 AM EDT 1.0 {tablet} active Adderall 10 MG eCW1 ([facility]) Amphetamine aspartate 2.5 MG / Amphetami ne Sulfate 2.5 MG / Dextroamphetamine saccharate 2.5 MG / Dextroamphetamine Sulfate 2.5 MG Oral Tablet [Adderall] Adderall 10 MG Adderall 10 MG 04/16/2021 12:00:00 AM EDT 1.0 {tablet} active Adderall 10 MG eCW1 ([facility]) Amphetamine aspartate 2.5 MG / Amphetami ne Sulfate 2.5 MG / Dextroamphetamine saccharate 2.5 MG / Dextroamphetamine Sulfate 2.5 MG Oral Tablet [Adderall] Adderall 10 MG Adderall 10 MG 03/16/2021 12:00:00 AM EDT 1.0 {tablet} active Adderall 10 MG eCW1 ([facility]) Amphetamine aspartate 2.5 MG / Amphetami ne Sulfate 2.5 MG / Dextroamphetamine saccharate 2.5 MG / Dextroamphetamine Sulfate 2.5 MG Oral Tablet [Adderall] Adderall 10 MG Adderall 10 MG 03/16/2021 12:00:00 AM EDT 1.0 {tablet} active Adderall 10 MG eCW1 ([facility]) Amphetamine aspartate 2.5 MG / Amphetami ne Sulfate 2.5 MG / Dextroamphetamine saccharate 2.5 MG / Dextroamphetamine Sulfate 2.5 MG Oral Tablet 10 mg DEXTROAMPHETAMINE/AMPHETAMINE 03/16/2021 12:00:00 AM EDT tablet 60 TAKE ONE TABLET BY MOUTH TWICE A DAY MAXIMUM DAILY DOSE = 2 TAKE ONE TABLET BY MOUTH TWICE A DAY MAXIMUM DAILY DOSE = 2 SOLD: 03/17/2021 [facility] 1 mg 03/07/2021 12:00:00 AM EDT capsule 60 TAKE ONE CAPSULE BY MOUTH AT BEDTIME FOR 3 DAYS, THEN TAKE TWO CAPSULES BY MOUTH AT BEDTIME TAKE ONE CAPSULE BY MOUTH AT BEDTIME FOR 3 DAYS, THEN TAKE TWO CAPSULES BY MOUTH AT BEDTIME SOLD: 04/09/2021 [facility] 1 mg 03/07/2021 12:00:00 AM EDT capsule 60 TAKE ONE CAPSULE BY MOUTH AT BEDTIME FOR 3 DAYS, THEN TAKE TWO CAPSULES BY MOUTH AT BEDTIME TAKE ONE CAPSULE BY MOUTH AT BEDTIME FOR 3 DAYS, THEN TAKE TWO CAPSULES BY MOUTH AT BEDTIME SOLD: 03/09/2021 [facility] 24 HR Amphetamine aspartate 5 MG / Amphe tamine Sulfate 5 MG / Dextroamphetamine saccharate 5 MG / Dextroamphetamine Sulfate 5 MG Extended Release Oral Capsule 20 mg DEXTROAMPHETAMINE/AMPHETAMINE 02/13/2021 12:00:00 AM EDT cap jennifer,extended release 24hr 30 TAKE ONE CAPSULE BY MOUTH EVERY DAY IN THE MORNING MAXIMUM DAILY DOSE = 1 TAKE ONE CAPSULE BY MOUTH EVERY DAY IN T HE MORNING MAXIMUM DAILY DOSE = 1 SOLD: 02/15/2021 [facility] [place] 91 Day Pack 0.15 mg-30 mcg (91) LEVONORGESTREL/ETHI N.ESTRADIOL 02/12/2021 12:00:00 AM EDT tablets,dose pack,3 month 91 TAKE ONE TABLET BY MOUTH EVERY DAY TAKE ONE TABLET BY MOUTH EVERY DAY SOLD: 05/16/2021 [facility] [place] 91 Day Pack 0.15 mg-30 mcg (91) LEVONORGESTREL/ETHI N.ESTRADIOL 02/12/2021 12:00:00 AM EDT tablets,dose pack,3 month 91 TAKE ONE TABLET BY MOUTH EVERY DAY TAKE ONE TABLET BY MOUTH EVERY DAY SOLD: 02/13/2021 [facility] 24 HR Amphetamine aspartate 5 MG / Amphe tamine Sulfate 5 MG / Dextroamphetamine saccharate 5 MG / Dextroamphetamine Sulfate 5 MG Extended Release Oral Capsule [Adderall] Adderall XR 20 mg Adderall XR 20 mg 02/12/2021 12:00:00 AM EDT 1.0 {capsule_in_the_morning} active Adderal l XR 20 mg eCW1 ([facility]) 24 HR Amphetamine aspartate 5 MG / Amphe tamine Sulfate 5 MG / Dextroamphetamine saccharate 5 MG / Dextroamphetamine Sulfate 5 MG Extended Release Oral Capsule [Adderall] Adderall XR 20 mg Adderall XR 20 mg 02/12/2021 12:00:00 AM EDT 1.0 {capsule_in_the_morning} active Adderal l XR 20 mg eCW1 ([facility]) 24 HR Amphetamine aspartate 5 MG / Amphe tamine Sulfate 5 MG / Dextroamphetamine saccharate 5 MG / Dextroamphetamine Sulfate 5 MG Extended Release Oral Capsule [Adderall] Adderall XR 20 mg Adderall XR 20 mg 02/12/2021 12:00:00 AM EDT 1.0 {capsule_in_the_morning} active Adderal l XR 20 mg eCW1 ([facility]) 24 HR Amphetamine aspartate 5 MG / Amphe tamine Sulfate 5 MG / Dextroamphetamine saccharate 5 MG / Dextroamphetamine Sulfate 5 MG Extended Release Oral Capsule [Adderall] Adderall XR 20 mg Adderall XR 20 mg 02/12/2021 12:00:00 AM EDT 1.0 {capsule_in_the_morning} active Adderal l XR 20 mg eCW1 ([facility]) 24 HR Amphetamine aspartate 5 MG / Amphe tamine Sulfate 5 MG / Dextroamphetamine saccharate 5 MG / Dextroamphetamine Sulfate 5 MG Extended Release Oral Capsule [Adderall] Adderall XR 20 mg Adderall XR 20 mg 02/12/2021 12:00:00 AM EDT 1.0 {capsule_in_the_morning} active Adderal l XR 20 mg eCW1 ([facility]) 600 mg 01/30/2021 12:00:00 AM EDT tablet 28 TAKE ONE TABLET BY MOUTH FOUR TIMES A DAY NEEDED FOR PAIN TAKE ONE TABLET BY MOUTH FOUR TIMES A DA Y NEEDED FOR PAIN SOLD: 02/13/2021 [facility] 600 mg 01/24/2021 12:00:00 AM EDT tablet 30 TAKE ONE TABLET BY MOUTH EVERY 6 HOURS NEEDED FOR PAIN/ STIFFNESS TAKE ONE TABLET BY MOUTH EVERY 6 HOURS A S NEEDED FOR PAIN/ STIFFNESS SOLD: 01/24/2021 [facility] 24 HR Amphetamine aspartate 5 MG / Amphe tamine Sulfate 5 MG / Dextroamphetamine saccharate 5 MG / Dextroamphetamine Sulfate 5 MG Extended Release Oral Capsule 20 mg DEXTROAMPHETAMINE/AMPHETAMINE 01/13/2021 12:00:00 AM EDT cap jennifer,extended release 24hr 30 TAKE ONE CAPSULE BY MOUTH EVERY MORNING TAKE ONE CAPSULE BY MOUTH EVERY MORNING SOLD: 01/15/2021 [facility] 24 HR Amphetamine aspartate 5 MG / Amphe tamine Sulfate 5 MG / Dextroamphetamine saccharate 5 MG / Dextroamphetamine Sulfate 5 MG Extended Release Oral Capsule [Adderall] Adderall XR 20 mg Adderall XR 20 mg 01/12/2021 12:00:00 AM EDT 1.0 {capsule_in_the_morning} active Adderal l XR 20 mg eCW1 ([facility]) 24 HR Amphetamine aspartate 5 MG / Amphe tamine Sulfate 5 MG / Dextroamphetamine saccharate 5 MG / Dextroamphetamine Sulfate 5 MG Extended Release Oral Capsule [Adderall] Adderall XR 20 mg Adderall XR 20 mg 01/12/2021 12:00:00 AM EDT 1.0 {capsule_in_the_morning} active Adderal l XR 20 mg eCW1 ([facility]) 24 HR Amphetamine aspartate 5 MG / Amphe tamine Sulfate 5 MG / Dextroamphetamine saccharate 5 MG / Dextroamphetamine Sulfate 5 MG Extended Release Oral Capsule [Adderall] Adderall XR 20 mg Adderall XR 20 mg 01/12/2021 12:00:00 AM EDT 1.0 {capsule_in_the_morning} active Adderal l XR 20 mg eCW1 ([facility]) 24 HR Amphetamine aspartate 5 MG / Amphe tamine Sulfate 5 MG / Dextroamphetamine saccharate 5 MG / Dextroamphetamine Sulfate 5 MG Extended Release Oral Capsule [Adderall] Adderall XR 20 mg Adderall XR 20 mg 01/12/2021 12:00:00 AM EDT 1.0 {capsule_in_the_morning} active Adderal l XR 20 mg eCW1 ([facility]) Acetaminophen 325 MG / Hydrocodone Bitartrate 5 MG Ora l Tablet 5-325 mg HYDROCODONE/ACETAMINOPHEN 01/03/2021 12:00:00 AM EDT tablet 42 TAKE 1 TABLET BY MOUTH EVERY FOUR HOURS NEEDED FOR PAIN,MAXIMUM DAILY DOSE = 6 TAKE 1 TABLET BY MOUTH EVERY FOUR HOURS NEEDED FOR PAIN,MAXIMUM DAILY DOSE = 6 SOLD: 01/03/2021 [facility] Acetaminophen 325 MG / Hydrocodone Bitartrate 5 MG Oral Tabl et [Brutus] Brutus 01/03/2021 12:00:00 AM EDT completed MEDENT ([facility], ) 1 mg 12/14/2020 12:00:00 AM EDT capsule 60 TAKE ONE CAPSULE BY MOUTH EVERY DAY AT BEDTIME FOR 3 DAYS THEN 2 ONCE DAILY AT BEDTIME TAKE ONE CAPSULE BY MOUTH EVERY DAY AT BEDTIME FOR 3 DAYS THEN 2 ONCE DAILY AT BEDTIME SOLD: 12/17/2020 [facility] Prazosin 1 MG Oral Capsule Prazosin HCl 1 MG Prazosin HCl 1 MG 12/14/2020 12:00:00 AM EDT suspended Prazo sin HCl 1 MG eCW1 ([facility]) Prazosin 1 MG Oral Capsule Prazosin HCl 1 MG Prazosin HCl 1 MG 12/14/2020 12:00:00 AM EDT active Prazosin HCl 1 MG eCW1 ([facility]) Prazosin 1 MG Oral Capsule Prazosin HCl 1 MG Prazosin HCl 1 MG 12/14/2020 12:00:00 AM EDT active Prazosin HCl 1 MG eCW1 ([facility]) Prazosin 1 MG Oral Capsule Prazosin HCl 1 MG Prazosin HCl 1 MG 12/14/2020 12:00:00 AM EDT active Prazosin HCl 1 MG eCW1 ([facility]) Prazosin 1 MG Oral Capsule Prazosin HCl 1 MG Prazosin HCl 1 MG 12/14/2020 12:00:00 AM EDT active Prazosin HCl 1 MG eCW1 ([facility]) Prazosin 1 MG Oral Capsule Prazosin HCl 1 MG Prazosin HCl 1 MG 12/14/2020 12:00:00 AM EDT active Prazosin HCl 1 MG eCW1 ([facility]) 50 mg 12/14/2020 12:00:00 AM EDT tablet 30 TAKE ONE TABLET BY MOUTH EVERY DAY TAKE ONE TABLET BY MOUTH EVERY DAY SOLD: 04/09/2021 [facility] Prazosin 1 MG Oral Capsule Prazosin HCl 1 MG Prazosin HCl 1 MG 12/14/2020 12:00:00 AM EDT suspended Prazo sin HCl 1 MG eCW1 ([facility]) 50 mg 12/14/2020 12:00:00 AM EDT tablet 30 TAKE ONE TABLET BY MOUTH EVERY DAY TAKE ONE TABLET BY MOUTH EVERY DAY SOLD: 03/01/2021 [facility] Prazosin 1 MG Oral Capsule Prazosin HCl 1 MG Prazosin HCl 1 MG 12/14/2020 12:00:00 AM EDT active Prazosin HCl 1 MG eCW1 ([facility]) Prazosin 1 MG Oral Capsule Prazosin HCl 1 MG Prazosin HCl 1 MG 12/14/2020 12:00:00 AM EDT active Prazosin HCl 1 MG eCW1 ([facility]) Prazosin 1 MG Oral Capsule Prazosin HCl 1 MG Prazosin HCl 1 MG 12/14/2020 12:00:00 AM EDT suspended Prazo sin HCl 1 MG eCW1 ([facility]) Prazosin 1 MG Oral Capsule Prazosin HCl 1 MG Prazosin HCl 1 MG 12/14/2020 12:00:00 AM EDT active Prazosin HCl 1 MG eCW1 ([facility]) Prazosin 1 MG Oral Capsule Prazosin HCl 1 MG Prazosin HCl 1 MG 12/14/2020 12:00:00 AM EDT active Prazosin HCl 1 MG eCW1 ([facility]) Prazosin 1 MG Oral Capsule Prazosin HCl 1 MG Prazosin HCl 1 MG 12/14/2020 12:00:00 AM EDT active Prazosin HCl 1 MG eCW1 ([facility]) 50 mg 12/14/2020 12:00:00 AM EDT tablet 30 TAKE ONE TABLET BY MOUTH EVERY DAY TAKE ONE TABLET BY MOUTH EVERY DAY SOLD: 05/14/2021 [facility] Prazosin 1 MG Oral Capsule Prazosin HCl 1 MG Prazosin HCl 1 MG 12/14/2020 12:00:00 AM EDT active Prazosin HCl 1 MG eCW1 ([facility]) Prazosin 1 MG Oral Capsule Prazosin HCl 1 MG Prazosin HCl 1 MG 12/14/2020 12:00:00 AM EDT suspended Prazo sin HCl 1 MG eCW1 ([facility]) 50 mg 12/14/2020 12:00:00 AM EDT tablet 30 TAKE ONE TABLET BY MOUTH EVERY DAY TAKE ONE TABLET BY MOUTH EVERY DAY SOLD: 01/24/2021 [facility] Prazosin 1 MG Oral Capsule Prazosin HCl 1 MG Prazosin HCl 1 MG 12/14/2020 12:00:00 AM EDT active Prazosin HCl 1 MG eCW1 ([facility]) Prazosin 1 MG Oral Capsule Prazosin HCl 1 MG Prazosin HCl 1 MG 12/14/2020 12:00:00 AM EDT active Prazosin HCl 1 MG eCW1 ([facility]) Prazosin 1 MG Oral Capsule Prazosin HCl 1 MG Prazosin HCl 1 MG 12/14/2020 12:00:00 AM EDT suspended Prazo sin HCl 1 MG eCW1 ([facility]) Prazosin 1 MG Oral Capsule Prazosin HCl 1 MG Prazosin HCl 1 MG 12/14/2020 12:00:00 AM EDT active Prazosin HCl 1 MG eCW1 ([facility]) Prazosin 1 MG Oral Capsule Prazosin HCl 1 MG Prazosin HCl 1 MG 12/14/2020 12:00:00 AM EDT suspended Prazo sin HCl 1 MG eCW1 ([facility]) Prazosin 1 MG Oral Capsule Prazosin HCl 1 MG Prazosin HCl 1 MG 12/14/2020 12:00:00 AM EDT active Prazosin HCl 1 MG eCW1 ([facility]) 50 mg 12/14/2020 12:00:00 AM EDT tablet 30 TAKE ONE TABLET BY MOUTH EVERY DAY TAKE ONE TABLET BY MOUTH EVERY DAY SOLD: 12/17/2020 [facility] 24 HR Amphetamine aspartate 5 MG / Amphe tamine Sulfate 5 MG / Dextroamphetamine saccharate 5 MG / Dextroamphetamine Sulfate 5 MG Extended Release Oral Capsule [Adderall] Adderall XR 20 mg Adderall XR 20 mg 12/12/2020 12:00:00 AM EDT 1.0 {capsule_in_the_morning} active Adderal l XR 20 mg eCW1 ([facility]) 24 HR Amphetamine aspartate 5 MG / Amphe tamine Sulfate 5 MG / Dextroamphetamine saccharate 5 MG / Dextroamphetamine Sulfate 5 MG Extended Release Oral Capsule 20 mg DEXTROAMPHETAMINE/AMPHETAMINE 12/12/2020 12:00:00 AM EDT cap jennifer,extended release 24hr 30 TAKE ONE CAPSULE BY MOUTH EVERY MORNING MAXIMUM DAILY DOSE = 1 TAKE ONE CAPSULE BY MOUTH EVERY MORNING MAXIMUM DAILY DOSE = 1 SOLD: 12/14/2020 [facility] 24 HR Amphetamine aspartate 5 MG / Amphe tamine Sulfate 5 MG / Dextroamphetamine saccharate 5 MG / Dextroamphetamine Sulfate 5 MG Extended Release Oral Capsule [Adderall] Adderall XR 20 mg Adderall XR 20 mg 12/12/2020 12:00:00 AM EDT 1.0 {capsule_in_the_morning} active Adderal l XR 20 mg eCW1 ([facility]) 24 HR Amphetamine aspartate 5 MG / Amphe tamine Sulfate 5 MG / Dextroamphetamine saccharate 5 MG / Dextroamphetamine Sulfate 5 MG Extended Release Oral Capsule [Adderall] Adderall XR 20 mg Adderall XR 20 mg 12/12/2020 12:00:00 AM EDT 1.0 {capsule_in_the_morning} active Adderal l XR 20 mg eCW1 ([facility]) 24 HR Amphetamine aspartate 5 MG / Amphe tamine Sulfate 5 MG / Dextroamphetamine saccharate 5 MG / Dextroamphetamine Sulfate 5 MG Extended Release Oral Capsule [Adderall] Adderall XR 20 mg Adderall XR 20 mg 12/12/2020 12:00:00 AM EDT 1.0 {capsule_in_the_morning} active eCW1 ([facility]) 24 HR Amphetamine aspartate 5 MG / Amphe tamine Sulfate 5 MG / Dextroamphetamine saccharate 5 MG / Dextroamphetamine Sulfate 5 MG Extended Release Oral Capsule [Adderall] Adderall XR 20 mg Adderall XR 20 mg 12/12/2020 12:00:00 AM EDT 1.0 {capsule_in_the_morning} active Adderal l XR 20 mg eCW1 ([facility]) 24 HR Amphetamine aspartate 5 MG / Amphe tamine Sulfate 5 MG / Dextroamphetamine saccharate 5 MG / Dextroamphetamine Sulfate 5 MG Extended Release Oral Capsule [Adderall] Adderall XR 20 mg Adderall XR 20 mg 12/12/2020 12:00:00 AM EDT 1.0 {capsule_in_the_morning} active Adderal l XR 20 mg eCW1 ([facility]) 24 HR Amphetamine aspartate 5 MG / Amphe tamine Sulfate 5 MG / Dextroamphetamine saccharate 5 MG / Dextroamphetamine Sulfate 5 MG Extended Release Oral Capsule [Adderall] Adderall XR 20 mg Adderall XR 20 mg 12/12/2020 12:00:00 AM EDT 1.0 {capsule_in_the_morning} active Adderal l XR 20 mg eCW1 ([facility]) 24 HR Amphetamine aspartate 5 MG / Amphe tamine Sulfate 5 MG / Dextroamphetamine saccharate 5 MG / Dextroamphetamine Sulfate 5 MG Extended Release Oral Capsule 20 mg DEXTROAMPHETAMINE/AMPHETAMINE 11/09/2020 12:00:00 AM EDT cap jennifer,extended release 24hr 30 TAKE 1 CAPSULE BY MOUTH IN THE M ORNING,MAXIMUM DAILY DOSE = 1 TAKE 1 CAPSULE BY MOUTH IN THE MORNING,MAXIMUM DAILY DOSE = 1 SOLD: 11/13/2020 [facility] 24 HR Amphetamine aspartate 5 MG / Amphe tamine Sulfate 5 MG / Dextroamphetamine saccharate 5 MG / Dextroamphetamine Sulfate 5 MG Extended Release Oral Capsule [Adderall] Adderall XR 20 mg Adderall XR 20 mg 11/08/2020 12:00:00 AM EDT 1.0 {capsule_in_the_morning} active Adderal l XR 20 mg eCW1 ([facility]) 24 HR Amphetamine aspartate 5 MG / Amphe tamine Sulfate 5 MG / Dextroamphetamine saccharate 5 MG / Dextroamphetamine Sulfate 5 MG Extended Release Oral Capsule [Adderall] Adderall XR 20 mg Adderall XR 20 mg 11/08/2020 12:00:00 AM EDT 1.0 {capsule_in_the_morning} active Adderal l XR 20 mg eCW1 ([facility]) 24 HR Amphetamine aspartate 5 MG / Amphe tamine Sulfate 5 MG / Dextroamphetamine saccharate 5 MG / Dextroamphetamine Sulfate 5 MG Extended Release Oral Capsule [Adderall] Adderall XR 20 mg Adderall XR 20 mg 11/08/2020 12:00:00 AM EDT 1.0 {capsule_in_the_morning} active Adderal l XR 20 mg eCW1 ([facility]) cetirizine hydrochloride 10 MG Oral Tablet [Zyrtec] Zy rTEC Allergy 10 MG ZyrTEC Allergy 10 MG 10/23/2020 12:00:00 AM EDT 1.0 {tablet} suspended ZyrTEC Allergy 10 MG eCW1 ([facility]) Flonase Allergy Relief 50 MCG/ACT Flonase Allergy Relief 50 MCG/ACT 10/23/2020 12:00:00 AM EDT 1.0 {spray_in_each_nostril} susp ended Flonase Allergy Relief 50 MCG/ACT eCW1 ([facility]) Flonase Allergy Relief 50 MCG/ACT Flonase Allergy Relief 50 MCG/ACT 10/23/2020 12:00:00 AM EDT 1.0 {spray_in_each_nostril} susp ended Flonase Allergy Relief 50 MCG/ACT eCW1 ([facility]) Omeprazole 20 MG Delayed Release Oral Capsule Omeprazole 20 MG 10/23/2020 12:00:00 AM EDT active Omeprazo le 20 MG eCW1 ([facility]) Omeprazole 20 MG Delayed Release Oral Capsule Omeprazole 20 MG 10/23/2020 12:00:00 AM EDT suspended Omepr azole 20 MG eCW1 ([facility]) Flonase Allergy Relief 50 MCG/ACT Flonase Allergy Relief 50 MCG/ACT 10/23/2020 12:00:00 AM EDT 1.0 {spray_in_each_nostril} susp ended Flonase Allergy Relief 50 MCG/ACT eCW1 ([facility]) Flonase Allergy Relief 50 MCG/ACT Flonase Allergy Relief 50 MCG/ACT 10/23/2020 12:00:00 AM EDT 1.0 {spray_in_each_nostril} acti ve Flonase Allergy Relief 50 MCG/ACT eCW1 ([facility]) cetirizine hydrochloride 10 MG Oral Tablet [Zyrtec] Zy rTEC Allergy 10 MG ZyrTEC Allergy 10 MG 10/23/2020 12:00:00 AM EDT 1.0 {tablet} suspended ZyrTEC Allergy 10 MG eCW1 ([facility]) Omeprazole 20 MG Delayed Release Oral Capsule Omeprazole 20 MG 10/23/2020 12:00:00 AM EDT suspended Omepr azole 20 MG eCW1 ([facility]) cetirizine hydrochloride 10 MG Oral Tablet [Zyrtec] Zy rtec Allergy 10 MG Zyrtec Allergy 10 MG 10/23/2020 12:00:00 AM EDT 1.0 {tablet} active Zyrtec Allergy 10 MG eCW1 ([facility]) cetirizine hydrochloride 10 MG Oral Tablet [Zyrtec] Zy rTEC Allergy 10 MG ZyrTEC Allergy 10 MG 10/23/2020 12:00:00 AM EDT 1.0 {tablet} suspended ZyrTEC Allergy 10 MG eCW1 ([facility]) Flonase Allergy Relief 50 MCG/ACT Flonase Allergy Relief 50 MCG/ACT 10/23/2020 12:00:00 AM EDT 1.0 {spray_in_each_nostril} susp ended Flonase Allergy Relief 50 MCG/ACT eCW1 ([facility]) cetirizine hydrochloride 10 MG Oral Tablet [Zyrtec] Zy rTEC Allergy 10 MG ZyrTEC Allergy 10 MG 10/23/2020 12:00:00 AM EDT 1.0 {tablet} suspended ZyrTEC Allergy 10 MG eCW1 ([facility]) cetirizine hydrochloride 10 MG Oral Tablet [Zyrtec] Zy rtec Allergy 10 MG Zyrtec Allergy 10 MG 10/23/2020 12:00:00 AM EDT 1.0 {tablet} suspended Zyrtec Allergy 10 MG eCW1 ([facility]) Flonase Allergy Relief 50 MCG/ACT Flonase Allergy Relief 50 MCG/ACT 10/23/2020 12:00:00 AM EDT 1.0 {spray_in_each_nostril} susp ended Flonase Allergy Relief 50 MCG/ACT eCW1 ([facility]) Omeprazole 20 MG Delayed Release Oral Capsule Omeprazole 20 MG 10/23/2020 12:00:00 AM EDT active Omeprazo le 20 MG eCW1 ([facility]) Omeprazole 20 MG Delayed Release Oral Capsule Omeprazole 20 MG 10/23/2020 12:00:00 AM EDT suspended Omepr azole 20 MG eCW1 ([facility]) Omeprazole 20 MG Delayed Release Oral Capsule Omeprazole 20 MG 10/23/2020 12:00:00 AM EDT suspended Omepr azole 20 MG eCW1 ([facility]) cetirizine hydrochloride 10 MG Oral Tablet [Zyrtec] Zy rTEC Allergy 10 MG ZyrTEC Allergy 10 MG 10/23/2020 12:00:00 AM EDT 1.0 {tablet} suspended ZyrTEC Allergy 10 MG eCW1 ([facility]) Omeprazole 20 MG Delayed Release Oral Capsule Omeprazole 20 MG 10/23/2020 12:00:00 AM EDT active Omeprazo le 20 MG eCW1 ([facility]) Flonase Allergy Relief 50 MCG/ACT Flonase Allergy Relief 50 MCG/ACT 10/23/2020 12:00:00 AM EDT 1.0 {spray_in_each_nostril} acti ve Flonase Allergy Relief 50 MCG/ACT eCW1 ([facility]) Omeprazole 20 MG Delayed Release Oral Capsule Omeprazole 20 MG 10/23/2020 12:00:00 AM EDT suspended Omepr azole 20 MG eCW1 ([facility]) Omeprazole 20 MG Delayed Release Oral Capsule Omeprazole 20 MG 10/23/2020 12:00:00 AM EDT suspended Omepr azole 20 MG eCW1 ([facility]) Omeprazole 20 MG Delayed Release Oral Capsule Omeprazole 20 MG 10/23/2020 12:00:00 AM EDT suspended Omepr azole 20 MG eCW1 ([facility]) Omeprazole 20 MG Delayed Release Oral Capsule Omeprazole 20 MG 10/23/2020 12:00:00 AM EDT active Omeprazo le 20 MG eCW1 ([facility]) Omeprazole 20 MG Delayed Release Oral Capsule Omeprazole 20 MG 10/23/2020 12:00:00 AM EDT active e CW1 ([facility]) Flonase Allergy Relief 50 MCG/ACT Flonase Allergy Relief 50 MCG/ACT 10/23/2020 12:00:00 AM EDT 1.0 {spray_in_each_nostril} acti ve Flonase Allergy Relief 50 MCG/ACT eCW1 ([facility]) Omeprazole 20 MG Delayed Release Oral Capsule Omeprazole 20 MG 10/23/2020 12:00:00 AM EDT suspended Omepr azole 20 MG eCW1 ([facility]) Flonase Allergy Relief 50 MCG/ACT Flonase Allergy Relief 50 MCG/ACT 10/23/2020 12:00:00 AM EDT 1.0 {spray_in_each_nostril} susp ended Flonase Allergy Relief 50 MCG/ACT eCW1 ([facility]) Omeprazole 20 MG Delayed Release Oral Capsule Omeprazole 20 MG 10/23/2020 12:00:00 AM EDT suspended Omepr azole 20 MG eCW1 ([facility]) cetirizine hydrochloride 10 MG Oral Tablet [Zyrtec] Zy rtec Allergy 10 MG Zyrtec Allergy 10 MG 10/23/2020 12:00:00 AM EDT 1.0 {tablet} active Zyrtec Allergy 10 MG eCW1 ([facility]) cetirizine hydrochloride 10 MG Oral Tablet [Zyrtec] Zy rTEC Allergy 10 MG ZyrTEC Allergy 10 MG 10/23/2020 12:00:00 AM EDT 1.0 {tablet} suspended ZyrTEC Allergy 10 MG eCW1 ([facility]) cetirizine hydrochloride 10 MG Oral Tablet [Zyrtec] Zy rTEC Allergy 10 MG ZyrTEC Allergy 10 MG 10/23/2020 12:00:00 AM EDT 1.0 {tablet} suspended ZyrTEC Allergy 10 MG eCW1 ([facility]) Omeprazole 20 MG Delayed Release Oral Capsule Omeprazole 20 MG 10/23/2020 12:00:00 AM EDT suspended Omepr azole 20 MG eCW1 ([facility]) cetirizine hydrochloride 10 MG Oral Tablet [Zyrtec] Zy rtec Allergy 10 MG Zyrtec Allergy 10 MG 10/23/2020 12:00:00 AM EDT 1.0 {tablet} suspended Zyrtec Allergy 10 MG eCW1 ([facility]) Flonase Allergy Relief 50 MCG/ACT Flonase Allergy Relief 50 MCG/ACT 10/23/2020 12:00:00 AM EDT 1.0 {spray_in_each_nostril} susp ended Flonase Allergy Relief 50 MCG/ACT eCW1 ([facility]) Omeprazole 20 MG Delayed Release Oral Capsule Omeprazole 20 MG 10/23/2020 12:00:00 AM EDT suspended Omepr azole 20 MG eCW1 ([facility]) Flonase Allergy Relief 50 MCG/ACT Flonase Allergy Relief 50 MCG/ACT 10/23/2020 12:00:00 AM EDT 1.0 {spray_in_each_nostril} active eCW1 ([facility]) cetirizine hydrochloride 10 MG Oral Tablet [Zyrtec] Zy rtec Allergy 10 MG Zyrtec Allergy 10 MG 10/23/2020 12:00:00 AM EDT 1.0 {tablet} active Zyrtec Allergy 10 MG eCW1 ([facility]) Omeprazole 20 MG Delayed Release Oral Capsule Omeprazole 20 MG 10/23/2020 12:00:00 AM EDT suspended Omepr azole 20 MG eCW1 ([facility]) Omeprazole 20 MG Delayed Release Oral Capsule Omeprazole 20 MG 10/23/2020 12:00:00 AM EDT suspended Omepr azole 20 MG eCW1 ([facility]) cetirizine hydrochloride 10 MG Oral Tablet [Zyrtec] Zy rTEC Allergy 10 MG ZyrTEC Allergy 10 MG 10/23/2020 12:00:00 AM EDT 1.0 {tablet} suspended ZyrTEC Allergy 10 MG eCW1 ([facility]) Omeprazole 20 MG Delayed Release Oral Capsule Omeprazole 20 MG 10/23/2020 12:00:00 AM EDT suspended Omepr azole 20 MG eCW1 ([facility]) Flonase Allergy Relief 50 MCG/ACT Flonase Allergy Relief 50 MCG/ACT 10/23/2020 12:00:00 AM EDT 1.0 {spray_in_each_nostril} susp ended Flonase Allergy Relief 50 MCG/ACT eCW1 ([facility]) cetirizine hydrochloride 10 MG Oral Tablet [Zyrtec] Zy rTEC Allergy 10 MG ZyrTEC Allergy 10 MG 10/23/2020 12:00:00 AM EDT 1.0 {tablet} suspended ZyrTEC Allergy 10 MG eCW1 ([facility]) cetirizine hydrochloride 10 MG Oral Tablet [Zyrtec] Zy rTEC Allergy 10 MG ZyrTEC Allergy 10 MG 10/23/2020 12:00:00 AM EDT 1.0 {tablet} suspended ZyrTEC Allergy 10 MG eCW1 ([facility]) Flonase Allergy Relief 50 MCG/ACT Flonase Allergy Relief 50 MCG/ACT 10/23/2020 12:00:00 AM EDT 1.0 {spray_in_each_nostril} susp ended Flonase Allergy Relief 50 MCG/ACT eCW1 ([facility]) Omeprazole 20 MG Delayed Release Oral Capsule Omeprazole 20 MG 10/23/2020 12:00:00 AM EDT active Omeprazo le 20 MG eCW1 ([facility]) Omeprazole 20 MG Delayed Release Oral Capsule Omeprazole 20 MG 10/23/2020 12:00:00 AM EDT suspended Omepr azole 20 MG eCW1 ([facility]) Flonase Allergy Relief 50 MCG/ACT Flonase Allergy Relief 50 MCG/ACT 10/23/2020 12:00:00 AM EDT 1.0 {spray_in_each_nostril} susp ended Flonase Allergy Relief 50 MCG/ACT eCW1 ([facility]) Flonase Allergy Relief 50 MCG/ACT Flonase Allergy Relief 50 MCG/ACT 10/23/2020 12:00:00 AM EDT 1.0 {spray_in_each_nostril} susp ended Flonase Allergy Relief 50 MCG/ACT eCW1 ([facility]) Flonase Allergy Relief 50 MCG/ACT Flonase Allergy Relief 50 MCG/ACT 10/23/2020 12:00:00 AM EDT 1.0 {spray_in_each_nostril} susp ended Flonase Allergy Relief 50 MCG/ACT eCW1 ([facility]) Flonase Allergy Relief 50 MCG/ACT Flonase Allergy Relief 50 MCG/ACT 10/23/2020 12:00:00 AM EDT 1.0 {spray_in_each_nostril} susp ended Flonase Allergy Relief 50 MCG/ACT eCW1 ([facility]) Flonase Allergy Relief 50 MCG/ACT Flonase Allergy Relief 50 MCG/ACT 10/23/2020 12:00:00 AM EDT 1.0 {spray_in_each_nostril} susp ended Flonase Allergy Relief 50 MCG/ACT eCW1 ([facility]) Flonase Allergy Relief 50 MCG/ACT Flonase Allergy Relief 50 MCG/ACT 10/23/2020 12:00:00 AM EDT 1.0 {spray_in_each_nostril} acti ve Flonase Allergy Relief 50 MCG/ACT eCW1 ([facility]) Omeprazole 20 MG Delayed Release Oral Capsule Omeprazole 20 MG 10/23/2020 12:00:00 AM EDT suspended Omepr azole 20 MG eCW1 ([facility]) cetirizine hydrochloride 10 MG Oral Tablet [Zyrtec] Zy rTEC Allergy 10 MG ZyrTEC Allergy 10 MG 10/23/2020 12:00:00 AM EDT 1.0 {tablet} suspended ZyrTEC Allergy 10 MG eCW1 ([facility]) cetirizine hydrochloride 10 MG Oral Tablet [Zyrtec] Zy rTEC Allergy 10 MG ZyrTEC Allergy 10 MG 10/23/2020 12:00:00 AM EDT 1.0 {tablet} suspended ZyrTEC Allergy 10 MG eCW1 ([facility]) Flonase Allergy Relief 50 MCG/ACT Flonase Allergy Relief 50 MCG/ACT 10/23/2020 12:00:00 AM EDT 1.0 {spray_in_each_nostril} acti ve Flonase Allergy Relief 50 MCG/ACT eCW1 ([facility]) Flonase Allergy Relief 50 MCG/ACT Flonase Allergy Relief 50 MCG/ACT 10/23/2020 12:00:00 AM EDT 1.0 {spray_in_each_nostril} susp ended Flonase Allergy Relief 50 MCG/ACT eCW1 ([facility]) Flonase Allergy Relief 50 MCG/ACT Flonase Allergy Relief 50 MCG/ACT 10/23/2020 12:00:00 AM EDT 1.0 {spray_in_each_nostril} susp ended Flonase Allergy Relief 50 MCG/ACT eCW1 ([facility]) Omeprazole 20 MG Delayed Release Oral Capsule Omeprazole 20 MG 10/23/2020 12:00:00 AM EDT active Omeprazo le 20 MG eCW1 ([facility]) Flonase Allergy Relief 50 MCG/ACT Flonase Allergy Relief 50 MCG/ACT 10/23/2020 12:00:00 AM EDT 1.0 {spray_in_each_nostril} susp ended Flonase Allergy Relief 50 MCG/ACT eCW1 ([facility]) Omeprazole 20 MG Delayed Release Oral Capsule Omeprazole 20 MG 10/23/2020 12:00:00 AM EDT suspended Omepr azole 20 MG eCW1 ([facility]) cetirizine hydrochloride 10 MG Oral Tablet [Zyrtec] Zy rtec Allergy 10 MG Zyrtec Allergy 10 MG 10/23/2020 12:00:00 AM EDT 1.0 {tablet} active Zyrtec Allergy 10 MG eCW1 ([facility]) Omeprazole 20 MG Delayed Release Oral Capsule Omeprazole 20 MG 10/23/2020 12:00:00 AM EDT active Omeprazo le 20 MG eCW1 ([facility]) Flonase Allergy Relief 50 MCG/ACT Flonase Allergy Relief 50 MCG/ACT 10/23/2020 12:00:00 AM EDT 1.0 {spray_in_each_nostril} acti ve Flonase Allergy Relief 50 MCG/ACT eCW1 ([facility]) Omeprazole 20 MG Delayed Release Oral Capsule Omeprazole 20 MG 10/23/2020 12:00:00 AM EDT suspended Omepr azole 20 MG eCW1 ([facility]) Omeprazole 20 MG Delayed Release Oral Capsule Omeprazole 20 MG 10/23/2020 12:00:00 AM EDT suspended Omepr azole 20 MG eCW1 ([facility]) cetirizine hydrochloride 10 MG Oral Tablet [Zyrtec] Zy rtec Allergy 10 MG Zyrtec Allergy 10 MG 10/23/2020 12:00:00 AM EDT 1.0 {tablet} active Zyrtec Allergy 10 MG eCW1 ([facility]) cetirizine hydrochloride 10 MG Oral Tablet [Zyrtec] Zy rTEC Allergy 10 MG ZyrTEC Allergy 10 MG 10/23/2020 12:00:00 AM EDT 1.0 {tablet} suspended ZyrTEC Allergy 10 MG eCW1 ([facility]) Omeprazole 20 MG Delayed Release Oral Capsule Omeprazole 20 MG 10/23/2020 12:00:00 AM EDT active Omeprazo le 20 MG eCW1 ([facility]) Flonase Allergy Relief 50 MCG/ACT Flonase Allergy Relief 50 MCG/ACT 10/23/2020 12:00:00 AM EDT 1.0 {spray_in_each_nostril} susp ended Flonase Allergy Relief 50 MCG/ACT eCW1 ([facility]) cetirizine hydrochloride 10 MG Oral Tablet [Zyrtec] Zy rTEC Allergy 10 MG ZyrTEC Allergy 10 MG 10/23/2020 12:00:00 AM EDT 1.0 {tablet} suspended ZyrTEC Allergy 10 MG eCW1 ([facility]) Omeprazole 20 MG Delayed Release Oral Capsule Omeprazole 20 MG 10/23/2020 12:00:00 AM EDT suspended Omepr azole 20 MG eCW1 ([facility]) cetirizine hydrochloride 10 MG Oral Tablet [Zyrtec] Zy rtec Allergy 10 MG Zyrtec Allergy 10 MG 10/23/2020 12:00:00 AM EDT 1.0 {tablet} active Zyrtec Allergy 10 MG eCW1 ([facility]) cetirizine hydrochloride 10 MG Oral Tablet [Zyrtec] Zy rtec Allergy 10 MG Zyrtec Allergy 10 MG 10/23/2020 12:00:00 AM EDT 1.0 {tablet} active Zyrtec Allergy 10 MG eCW1 ([facility]) cetirizine hydrochloride 10 MG Oral Tablet [Zyrtec] Zy rtec Allergy 10 MG Zyrtec Allergy 10 MG 10/23/2020 12:00:00 AM EDT 1.0 {tablet} active Zyrtec Allergy 10 MG eCW1 ([facility]) cetirizine hydrochloride 10 MG Oral Tablet [Zyrtec] Zy rTEC Allergy 10 MG ZyrTEC Allergy 10 MG 10/23/2020 12:00:00 AM EDT 1.0 {tablet} suspended ZyrTEC Allergy 10 MG eCW1 ([facility]) cetirizine hydrochloride 10 MG Oral Tablet [Zyrtec] Zy rTEC Allergy 10 MG ZyrTEC Allergy 10 MG 10/23/2020 12:00:00 AM EDT 1.0 {tablet} suspended ZyrTEC Allergy 10 MG eCW1 ([facility]) Flonase Allergy Relief 50 MCG/ACT Flonase Allergy Relief 50 MCG/ACT 10/23/2020 12:00:00 AM EDT 1.0 {spray_in_each_nostril} susp ended Flonase Allergy Relief 50 MCG/ACT eCW1 ([facility]) cetirizine hydrochloride 10 MG Oral Tablet [Zyrtec] Zy rtec Allergy 10 MG Zyrtec Allergy 10 MG 10/23/2020 12:00:00 AM EDT 1.0 {tablet} suspended Zyrtec Allergy 10 MG eCW1 ([facility]) Flonase Allergy Relief 50 MCG/ACT Flonase Allergy Relief 50 MCG/ACT 10/23/2020 12:00:00 AM EDT 1.0 {spray_in_each_nostril} susp ended Flonase Allergy Relief 50 MCG/ACT eCW1 ([facility]) Flonase Allergy Relief 50 MCG/ACT Flonase Allergy Relief 50 MCG/ACT 10/23/2020 12:00:00 AM EDT 1.0 {spray_in_each_nostril} acti ve Flonase Allergy Relief 50 MCG/ACT eCW1 ([facility]) cetirizine hydrochloride 10 MG Oral Tablet [Zyrtec] Zy rtec Allergy 10 MG Zyrtec Allergy 10 MG 10/23/2020 12:00:00 AM EDT 1.0 {tablet} ac tive eCW1 ([facility]) Flonase Allergy Relief 50 MCG/ACT Flonase Allergy Relief 50 MCG/ACT 10/23/2020 12:00:00 AM EDT 1.0 {spray_in_each_nostril} acti ve Flonase Allergy Relief 50 MCG/ACT eCW1 ([facility]) Omeprazole 20 MG Delayed Release Oral Capsule Omeprazole 20 MG 10/23/2020 12:00:00 AM EDT suspended Omepr azole 20 MG eCW1 ([facility]) Flonase Allergy Relief 50 MCG/ACT Flonase Allergy Relief 50 MCG/ACT 10/23/2020 12:00:00 AM EDT 1.0 {spray_in_each_nostril} susp ended Flonase Allergy Relief 50 MCG/ACT eCW1 ([facility]) cetirizine hydrochloride 10 MG Oral Tablet [Zyrtec] Zy rTEC Allergy 10 MG ZyrTEC Allergy 10 MG 10/23/2020 12:00:00 AM EDT 1.0 {tablet} suspended ZyrTEC Allergy 10 MG eCW1 ([facility]) cetirizine hydrochloride 10 MG Oral Tablet [Zyrtec] Zy rTEC Allergy 10 MG ZyrTEC Allergy 10 MG 10/23/2020 12:00:00 AM EDT 1.0 {tablet} suspended ZyrTEC Allergy 10 MG eCW1 ([facility]) 24 HR Amphetamine aspartate 5 MG / Amphe tamine Sulfate 5 MG / Dextroamphetamine saccharate 5 MG / Dextroamphetamine Sulfate 5 MG Extended Release Oral Capsule [Adderall] Adderall XR 20 mg Adderall XR 20 mg 10/10/2020 12:00:00 AM EDT 1.0 {capsule_in_the_morning} active Adderal l XR 20 mg eCW1 ([facility]) 24 HR Amphetamine aspartate 5 MG / Amphe tamine Sulfate 5 MG / Dextroamphetamine saccharate 5 MG / Dextroamphetamine Sulfate 5 MG Extended Release Oral Capsule [Adderall] Adderall XR 20 mg Adderall XR 20 mg 10/10/2020 12:00:00 AM EDT 1.0 {capsule_in_the_morning} active Adderal l XR 20 mg eCW1 ([facility]) 20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 ([facility]) Body weight 91.35 kg 91.35 kg W1 ([facility]) Body height 67 [in_i] 67 [in_i] eCW1 ([facility]) Body mass index (BMI) [Ratio] 31.54 kg/m2 31.54 kg/m2 eCW1 ([facility]) Heart rate 62 /min 62 /min eCW1 (Pending sale to [facility]) Respiratory rate 17 /min 17 /min eCW1 ([facility]) Body temperature 98.9 [degF] 98.9 [degF] eCW1 ( [facility]) Systolic blood pressure 112 mm[Hg] 112 mm[Hg] e CW1 ([facility]) Diastolic blood pressure 60 mm[Hg] 60 mm[Hg] eCW1 ([facility]) Respiratory rate 17 /min 17 /min eCW1 ([facility]) Body temperature 99.2 [degF] 99.2 [degF] eCW1 ( [facility]) Systolic blood pressure 126 mm[Hg] 126 mm[Hg] e CW1 ([facility]) Diastolic blood pressure 58 mm[Hg] 58 mm[Hg] eCW1 ([facility]) Body weight 193 [lb_av] 193 [lb_av] eCW1 ([facility]) Body height 67 [in_i] 67 [in_i] eCW1 ([facility]) Body mass index (BMI) [Ratio] 30.22 kg/m2 30.22 kg/m2 eCW1 ([facility]) Heart rate 65 /min 65 /min eCW1 (Pending sale to [facility]) Body mass index (BMI) [Ratio] 30.1 kg/m2 30.1 k g/m2 [facility] ([facility]) [place] body weight 135 [lb_av] 135 [lb_av] [facility] T ([facility]) Body surface area Derived from formula 1.99 m2 1.99 m2 [facility] Body height 67 [in_i] 67 [in_i] [facility] ([facility]) 5'7" Body height 67 [in_i] 67 [in_i] [facility] ([facility]) 5'7" Body weight 192.00 [lb_av] 192.00 [lb_av] [facility] T ([facility]) Body weight 192.00 [lb_av] 192.00 [lb_av] [facility] T ([facility]) Body mass index (BMI) [Ratio] 30.1 kg/m2 30.1 k g/m2 [facility] ([facility]) Body weight 87.091 kg 87.091 kg [facility] ([facility]) [place] body weight 135 [lb_av] 135 [lb_av] [facility] T ([facility]) Body weight 87.091 kg 87.091 kg [facility] ([facility]) Body surface area Derived from formula 1.99 m2 1.99 m2 [facility] ([facility]) Body temperature 99.0 [degF] 99.0 [degF] eCW1 ( [facility]) Systolic blood pressure 125 mm[Hg] 125 mm[Hg] e CW1 ([facility]) Diastolic blood pressure 62 mm[Hg] 62 mm[Hg] eCW1 ([facility]) Body weight 201 [lb_av] 201 [lb_av] eCW1 ([facility]) Body height 67 [in_i] 67 [in_i] eCW1 ([facility]) Body mass index (BMI) [Ratio] 31.48 kg/m2 31.48 kg/m2 eCW1 ([facility]) Heart rate 71 /min 71 /min eCW1 (Pending sale to [facility]) Respiratory rate 17 /min 17 /min eCW1 ([facility]) Body height 67 [in_i] 67 [in_i] [facility] ([facility]) 5'7" Body weight 190.00 [lb_av] 190.00 [lb_av] [facility] T ([facility]) Body mass index (BMI) [Ratio] 29.8 kg/m2 29.8 k g/m2 [facility] ([facility]) [place] body weight 135 [lb_av] 135 [lb_av] [facility] T ([facility]) Body weight 86.184 kg 86.184 kg [facility] ([facility]) Body surface area Derived from formula 1.98 m2 1.98 m2 [facility] ([facility]) Body weight 199.6 [lb_av] 199.6 [lb_av] eCW1 ([facility]) Body height 67 [in_i] 67 [in_i] eCW1 ([facility]) Body mass index (BMI) [Ratio] 31.26 kg/m2 31.26 kg/m2 eCW1 ([facility]) Heart rate 76 /min 76 /min eCW1 (Pending sale to [facility]) Respiratory rate 17 /min 17 /min eCW1 ([facility]) Body temperature 99.1 [degF] 99.1 [degF] eCW1 ( [facility]) Systolic blood pressure 100 mm[Hg] 100 mm[Hg] e CW1 ([facility]) Diastolic blood pressure 67 mm[Hg] 67 mm[Hg] eCW1 ([facility]) Body weight 183 [lb_av] 183 [lb_av] eCW1 ([facility]) Body height 67 [in_i] 67 [in_i] eCW1 ([facility]) Body mass index (BMI) [Ratio] 28.66 kg/m2 28.66 kg/m2 eCW1 ([facility]) Heart rate 84 /min 84 /min eCW1 (Pending sale to [facility]) Respiratory rate 16 /min 16 /min eCW1 ([facility]) Body temperature 98.7 [degF] 98.7 [degF] eCW1 ( [facility]) Systolic blood pressure 133 mm[Hg] 133 mm[Hg] e CW1 ([facility]) Diastolic blood pressure 67 mm[Hg] 67 mm[Hg] eCW1 ([facility]) Patient Treatment Plan of Care Planned Activity Planned Date Details Description Data Source (s) Amphetamine aspartate 2.5 MG / Amphetami ne Sulfate 2.5 MG / Dextroamphetamine saccharate 2.5 MG / Dextroamphetamine Sulfate 2.5 MG Oral Tablet [Adderall] 05/16/2021 12:00:00 AM EDT eCW1 ([facility]) Amphetamine aspartate 2.5 MG / Amphetami ne Sulfate 2.5 MG / Dextroamphetamine saccharate 2.5 MG / Dextroamphetamine Sulfate 2.5 MG Oral Tablet [Adderall] 05/16/2021 12:00:00 AM EDT eCW1 ([facility]) Amphetamine aspartate 2.5 MG / Amphetami ne Sulfate 2.5 MG / Dextroamphetamine saccharate 2.5 MG / Dextroamphetamine Sulfate 2.5 MG Oral Tablet [Adderall] 04/16/2021 12:00:00 AM EDT eCW1 ([facility]) Amphetamine aspartate 2.5 MG / Amphetami ne Sulfate 2.5 MG / Dextroamphetamine saccharate 2.5 MG / Dextroamphetamine Sulfate 2.5 MG Oral Tablet [Adderall] 04/16/2021 12:00:00 AM EDT eCW1 ([facility]) Amphetamine aspartate 2.5 MG / Amphetami ne Sulfate 2.5 MG / Dextroamphetamine saccharate 2.5 MG / Dextroamphetamine Sulfate 2.5 MG Oral Tablet [Adderall] 04/16/2021 12:00:00 AM EDT eCW1 ([facility]) Amphetamine aspartate 2.5 MG / Amphetami ne Sulfate 2.5 MG / Dextroamphetamine saccharate 2.5 MG / Dextroamphetamine Sulfate 2.5 MG Oral Tablet [Adderall] 03/16/2021 12:00:00 AM EDT eCW1 ([facility]) Amphetamine aspartate 2.5 MG / Amphetami ne Sulfate 2.5 MG / Dextroamphetamine saccharate 2.5 MG / Dextroamphetamine Sulfate 2.5 MG Oral Tablet [Adderall] 03/16/2021 12:00:00 AM EDT eCW1 ([facility]) 24 HR Amphetamine aspartate 5 MG / Amphe tamine Sulfate 5 MG / Dextroamphetamine saccharate 5 MG / Dextroamphetamine Sulfate 5 MG Extended Release Oral Capsule [Adderall] 02/12/2021 12:00:00 AM EDT eCW1 ([facility]) 24 HR Amphetamine aspartate 5 MG / Amphe tamine Sulfate 5 MG / Dextroamphetamine saccharate 5 MG / Dextroamphetamine Sulfate 5 MG Extended Release Oral Capsule [Adderall] 02/12/2021 12:00:00 AM EDT eCW1 ([facility]) 24 HR Amphetamine aspartate 5 MG / Amphe tamine Sulfate 5 MG / Dextroamphetamine saccharate 5 MG / Dextroamphetamine Sulfate 5 MG Extended Release Oral Capsule [Adderall] 01/12/2021 12:00:00 AM EDT eCW1 ([facility]) 24 HR Amphetamine aspartate 5 MG / Amphe tamine Sulfate 5 MG / Dextroamphetamine saccharate 5 MG / Dextroamphetamine Sulfate 5 MG Extended Release Oral Capsule [Adderall] 01/12/2021 12:00:00 AM EDT eCW1 ([facility]) 24 HR Amphetamine aspartate 5 MG / Amphe tamine Sulfate 5 MG / Dextroamphetamine saccharate 5 MG / Dextroamphetamine Sulfate 5 MG Extended Release Oral Capsule [Adderall] 01/12/2021 12:00:00 AM EDT eCW1 ([facility]) 24 HR Amphetamine aspartate 5 MG / Amphe tamine Sulfate 5 MG / Dextroamphetamine saccharate 5 MG / Dextroamphetamine Sulfate 5 MG Extended Release Oral Capsule [Adderall] 01/12/2021 12:00:00 AM EDT eCW1 ([facility]) Prazosin 1 MG Oral Capsule 12/14/2020 12:00:00 AM EDT eCW1 ([facility]) Prazosin 1 MG Oral Capsule 12/14/2020 12:00:00 AM EDT eCW1 ([facility]) Prazosin 1 MG Oral Capsule 12/14/2020 12:00:00 AM EDT eCW1 ([facility]) Prazosin 1 MG Oral Capsule 12/14/2020 12:00:00 AM EDT eCW1 ([facility]) Prazosin 1 MG Oral Capsule 12/14/2020 12:00:00 AM EDT eCW1 ([facility]) Prazosin 1 MG Oral Capsule 12/14/2020 12:00:00 AM EDT eCW1 ([facility]) Prazosin 1 MG Oral Capsule 12/14/2020 12:00:00 AM EDT eCW1 ([facility]) Prazosin 1 MG Oral Capsule 12/14/2020 12:00:00 AM EDT eCW1 ([facility]) Prazosin 1 MG Oral Capsule 12/14/2020 12:00:00 AM EDT eCW1 ([facility]) Prazosin 1 MG Oral Capsule 12/14/2020 12:00:00 AM EDT eCW1 ([facility]) Prazosin 1 MG Oral Capsule 12/14/2020 12:00:00 AM EDT eCW1 ([facility]) Prazosin 1 MG Oral Capsule 12/14/2020 12:00:00 AM EDT eCW1 ([facility]) Prazosin 1 MG Oral Capsule 12/14/2020 12:00:00 AM EDT eCW1 ([facility]) Prazosin 1 MG Oral Capsule 12/14/2020 12:00:00 AM EDT eCW1 ([facility]) Prazosin 1 MG Oral Capsule 12/14/2020 12:00:00 AM EDT eCW1 ([facility]) 24 HR Amphetamine aspartate 5 MG / Amphe tamine Sulfate 5 MG / Dextroamphetamine saccharate 5 MG / Dextroamphetamine Sulfate 5 MG Extended Release Oral Capsule [Adderall] 12/12/2020 12:00:00 AM EDT eCW1 ([facility]) 24 HR Amphetamine aspartate 5 MG / Amphe tamine Sulfate 5 MG / Dextroamphetamine saccharate 5 MG / Dextroamphetamine Sulfate 5 MG Extended Release Oral Capsule [Adderall] 12/12/2020 12:00:00 AM EDT eCW1 ([facility]) 24 HR Amphetamine aspartate 5 MG / Amphe tamine Sulfate 5 MG / Dextroamphetamine saccharate 5 MG / Dextroamphetamine Sulfate 5 MG Extended Release Oral Capsule [Adderall] 11/08/2020 12:00:00 AM EDT eCW1 ([facility]) 24 HR Amphetamine aspartate 5 MG / Amphe tamine Sulfate 5 MG / Dextroamphetamine saccharate 5 MG / Dextroamphetamine Sulfate 5 MG Extended Release Oral Capsule [Adderall] 11/08/2020 12:00:00 AM EDT eCW1 ([facility]) 24 HR Amphetamine aspartate 5 MG / Amphe tamine Sulfate 5 MG / Dextroamphetamine saccharate 5 MG / Dextroamphetamine Sulfate 5 MG Extended Release Oral Capsule [Adderall] 11/08/2020 12:00:00 AM EDT eCW1 ([facility]) Omeprazole 20 MG Delayed Release Oral Capsule 10/23/2020 12:00:00 A M EDT eCW1 ([facility]) Flonase Allergy Relief 50 MCG/ACT 10/23/2020 12:00:00 AM EDT eCW1 ([facility]) cetirizine hydrochloride 10 MG Oral Tablet [Zyrtec] 10/24/19 12:00:00 AM EDT eCW1 ([facility]) Omeprazole 20 MG Delayed Release Oral Capsule 10/23/2020 12:00:00 A M EDT eCW1 ([facility]) Flonase Allergy Relief 50 MCG/ACT 10/23/2020 12:00:00 AM EDT eCW1 ([facility]) cetirizine hydrochloride 10 MG Oral Tablet [Zyrtec] 10/24/19 12:00:00 AM EDT eCW1 ([facility]) Flonase Allergy Relief 50 MCG/ACT 10/23/2020 12:00:00 AM EDT eCW1 ([facility]) Omeprazole 20 MG Delayed Release Oral Capsule 10/23/2020 12:00:00 A M EDT eCW1 ([facility]) cetirizine hydrochloride 10 MG Oral Tablet [Zyrtec] 10/24/19 12:00:00 AM EDT eCW1 ([facility]) Flonase Allergy Relief 50 MCG/ACT 10/23/2020 12:00:00 AM EDT eCW1 ([facility]) Omeprazole 20 MG Delayed Release Oral Capsule 10/23/2020 12:00:00 A M EDT eCW1 ([facility]) cetirizine hydrochloride 10 MG Oral Tablet [Zyrtec] 10/24/19 12:00:00 AM EDT eCW1 ([facility]) Omeprazole 20 MG Delayed Release Oral Capsule 10/23/2020 12:00:00 A M EDT eCW1 ([facility]) cetirizine hydrochloride 10 MG Oral Tablet [Zyrtec] 10/24/19 12:00:00 AM EDT eCW1 ([facility]) Omeprazole 20 MG Delayed Release Oral Capsule 10/23/2020 12:00:00 A M EDT eCW1 ([facility]) Flonase Allergy Relief 50 MCG/ACT 10/23/2020 12:00:00 AM EDT eCW1 ([facility]) cetirizine hydrochloride 10 MG Oral Tablet [Zyrtec] 10/24/19 12:00:00 AM EDT eCW1 ([facility]) Flonase Allergy Relief 50 MCG/ACT 10/23/2020 12:00:00 AM EDT eCW1 ([facility]) Omeprazole 20 MG Delayed Release Oral Capsule 10/23/2020 12:00:00 A M EDT eCW1 ([facility]) cetirizine hydrochloride 10 MG Oral Tablet [Zyrtec] 10/24/19 12:00:00 AM EDT eCW1 ([facility]) Flonase Allergy Relief 50 MCG/ACT 10/23/2020 12:00:00 AM EDT eCW1 ([facility]) Omeprazole 20 MG Delayed Release Oral Capsule 10/23/2020 12:00:00 A M EDT eCW1 ([facility]) cetirizine hydrochloride 10 MG Oral Tablet [Zyrtec] 10/24/19 12:00:00 AM EDT eCW1 ([facility]) Flonase Allergy Relief 50 MCG/ACT 10/23/2020 12:00:00 AM EDT eCW1 ([facility]) Omeprazole 20 MG Delayed Release Oral Capsule 10/23/2020 12:00:00 A M EDT eCW1 ([facility]) cetirizine hydrochloride 10 MG Oral Tablet [Zyrtec] 10/24/19 12:00:00 AM EDT eCW1 ([facility]) Flonase Allergy Relief 50 MCG/ACT 10/23/2020 12:00:00 AM EDT eCW1 ([facility]) 24 HR Amphetamine aspartate 5 MG / Amphe tamine Sulfate 5 MG / Dextroamphetamine saccharate 5 MG / Dextroamphetamine Sulfate 5 MG Extended Release Oral Capsule [Adderall] 10/10/2020 12:00:00 AM EDT eCW1 ([facility]) 24 HR Amphetamine aspartate 5 MG / Amphe tamine Sulfate 5 MG / Dextroamphetamine saccharate 5 MG / Dextroamphetamine Sulfate 5 MG Extended Release Oral Capsule [Adderall] 10/10/2020 12:00:00 AM EDT eCW1 ([facility]) 24 HR Amphetamine aspartate 5 MG / Amphe tamine Sulfate 5 MG / Dextroamphetamine saccharate 5 MG / Dextroamphetamine Sulfate 5 MG Extended Release Oral Capsule [Adderall] 10/10/2020 12:00:00 AM EDT eCW1 ([facility]) 24 HR Amphetamine aspartate 5 MG / Amphe tamine Sulfate 5 MG / Dextroamphetamine saccharate 5 MG / Dextroamphetamine Sulfate 5 MG Extended Release Oral Capsule [Adderall] 08/31/2020 12:00:00 AM EST eCW1 ([facility]) 24 HR Amphetamine aspartate 5 MG / Amphe tamine Sulfate 5 MG / Dextroamphetamine saccharate 5 MG / Dextroamphetamine Sulfate 5 MG Extended Release Oral Capsule [Adderall] 08/31/2020 12:00:00 AM EST eCW1 ([facility]) 24 HR Amphetamine aspartate 5 MG / Amphe tamine Sulfate 5 MG / Dextroamphetamine saccharate 5 MG / Dextroamphetamine Sulfate 5 MG Extended Release Oral Capsule [Adderall] 07/26/2020 12:00:00 AM EST eCW1 ([facility]) 24 HR Amphetamine aspartate 5 MG / Amphe tamine Sulfate 5 MG / Dextroamphetamine saccharate 5 MG / Dextroamphetamine Sulfate 5 MG Extended Release Oral Capsule [Adderall] 06/27/2020 12:00:00 AM EST eCW1 ([facility]) 24 HR Amphetamine aspartate 5 MG / Amphe tamine Sulfate 5 MG / Dextroamphetamine saccharate 5 MG / Dextroamphetamine Sulfate 5 MG Extended Release Oral Capsule [Adderall] 06/27/2020 12:00:00 AM EST eCW1 ([facility]) Sertraline 50 MG Oral Tablet 06/08/2020 12:00:00 AM EST eCW1 ([facility]) Sertraline 50 MG Oral Tablet 06/08/2020 12:00:00 AM EST eCW1 ([facility]) Sertraline 50 MG Oral Tablet 06/08/2020 12:00:00 AM EST eCW1 ([facility]) Sertraline 50 MG Oral Tablet 06/08/2020 12:00:00 AM EST eCW1 ([facility]) Sertraline 50 MG Oral Tablet 06/08/2020 12:00:00 AM EST eCW1 ([facility]) Sertraline 25 MG Oral Tablet 06/08/2020 12:00:00 AM EST eCW1 ([facility]) Sertraline 25 MG Oral Tablet 06/08/2020 12:00:00 AM EST eCW1 ([facility]) Sertraline 25 MG Oral Tablet 06/08/2020 12:00:00 AM EST eCW1 ([facility]) Sertraline 25 MG Oral Tablet 06/08/2020 12:00:00 AM EST eCW1 ([facility]) Sertraline 25 MG Oral Tablet 06/08/2020 12:00:00 AM EST eCW1 ([facility]) Sertraline 25 MG Oral Tablet 06/08/2020 12:00:00 AM EST eCW1 ([facility]) Sertraline 25 MG Oral Tablet 06/08/2020 12:00:00 AM EST eCW1 ([facility]) Sertraline 25 MG Oral Tablet 06/08/2020 12:00:00 AM EST eCW1 ([facility]) 24 HR Amphetamine aspartate 5 MG / Amphe tamine Sulfate 5 MG / Dextroamphetamine saccharate 5 MG / Dextroamphetamine Sulfate 5 MG Extended Release Oral Capsule [Adderall] 05/25/2020 12:00:00 AM EDT eCW1 ([facility]) 24 HR Amphetamine aspartate 5 MG / Amphe tamine Sulfate 5 MG / Dextroamphetamine saccharate 5 MG / Dextroamphetamine Sulfate 5 MG Extended Release Oral Capsule [Adderall] 04/25/2020 12:00:00 AM EDT eCW1 ([facility]) 24 HR Amphetamine aspartate 5 MG / Amphe tamine Sulfate 5 MG / Dextroamphetamine saccharate 5 MG / Dextroamphetamine Sulfate 5 MG Extended Release Oral Capsule [Adderall] 04/25/2020 12:00:00 AM EDT eCW1 ([facility]) 24 HR Amphetamine aspartate 5 MG / Amphe tamine Sulfate 5 MG / Dextroamphetamine saccharate 5 MG / Dextroamphetamine Sulfate 5 MG Extended Release Oral Capsule [Adderall] 04/25/2020 12:00:00 AM EDT eCW1 ([facility])
[2021-05-23] MEDS ORDERED: MIDAZOLAM INJ 2MG/2ML VIAL (J2250 PER 1MG) As Ordered ONE (07:04)
[2021-05-23] MEDS ORDERED: fentaNYL 100 MCG/2 ML INJECTION (J3010) As Ordered ONE (07:05)
[2021-05-23] MEDS ORDERED: ONDANSETRON 4MG/2ML VIAL As Ordered ONE (07:12)
[2021-05-23] MEDS ORDERED: dexameTHASONE 4 MG/ML 1ML VIAL (J1100 PER 1MG) As Ordered ONE (07:12)
[2021-05-23] MEDS ORDERED: propofoL 200 MG/20 ML VIAL As Ordered ONE (07:12)
[2021-05-23] MEDS ORDERED: LIDOCAINE 2% 100MG/5ML SDV (FOR ANES.) As Ordered ONE (07:12)
[2021-05-23] MEDS ORDERED: ROCURONIUM BROMIDE 50 MG/5 ML VIAL As Ordered ONE (07:12)
[2021-05-23] MEDS ORDERED: LIDOCAINE W/EPINEPHRINE 1% 20ML VIAL As Ordered ONE (07:13)
[2021-05-23] MEDS ORDERED: METHYLENE BLUE 0.5% (5MG/ML) 10 ML AMP (PROVAYBLUE) As Ordered ONE (07:13)
[2021-05-23] MEDS ORDERED: EPINEPHrine INJ 1 MG/ML 1ML AMP As Ordered ONE (07:14)
[2021-05-23] MEDS ORDERED: EPINEPHrine 1MG/ML INJ 30ML MD-VIAL As Ordered ONE (07:18)
[2021-05-23] MEDS ORDERED: SUGAMMADEX SODIUM 500 MG/5 ML VIAL (BRIDION) As Ordered ONE (08:09)
[2021-05-23] MEDS ORDERED: METOCLOPRAMIDE INJ 10MG/2ML VIAL (J2765 PER 1) As Ordered ONE (08:10)
[2021-05-23] MEDS ORDERED: ACETAMINOPHEN 1000MG 100ML IV BTL (OFIRMEV) (J0131 PER 10MG) As Ordered ONE (08:20)
[2021-05-23] MEDS ORDERED: PERCOCET 5MG/325MG TAB PO PRN (08:55)
[2021-05-23] MEDS ORDERED: fentaNYL 100 MCG/2 ML INJECTION (J3010) IV PRN (08:55)
[2021-05-23] MEDS ORDERED: LR 1,000 ML IV SCH ×2 (08:55→09:05)
[2021-05-23] MEDS ORDERED: ONDANSETRON 4MG/2ML VIAL IV PRN (08:55)
[2021-05-23] MEDS ORDERED: METOCLOPRAMIDE INJ 10MG/2ML VIAL (J2765 PER 1) IV PRN (08:55)
[2021-05-23 11:00] VITALS: BP 115/59
--- NOTE | 2021-05-23 12:08 | RO ---
OPERATIVE NOTE DATE OF OPERATION: 05/23/2021 PREOPERATIVE DIAGNOSIS: Nasal septal deviation, chronic rhinitis. POSTOPERATIVE DIAGNOSIS: Nasal septal deviation, chronic rhinitis. OPERATIVE PROCEDURE: Turbinectomy, septoplasty. SURGEON: Alejandro Menezes MD DIRECTOR [employer] COMMUNICATIONS: ANESTHESIA: DESCRIPTION OF PROCEDURE: Under general anesthesia with the patient intubated, the patient prepped and draped in the usual manner. I used pledgets of adrenalin 1:1000 and infiltrated with lidocaine with epinephrine. I made an incision on the left side, elevated a subperichondrial, periosteal plane. I the quadrangular cartilage from the ethmoid plate and maxillary crest. I then removed a portion of the maxillary crest of the vomer and ethmoid plate which were deviated. Once this was done, the septum was straight so I closed the incision with 4-0 Chromic. Then I made an incision anterior to the inferior turbinate. I did debulk the inferior turbinate inferiorly using the microdebrider. I sutured that and sutured with 4-0 Monocryl. The patient tolerated the procedure well and transferred to the recovery room in excellent condition. Less than 10 mL of blood loss.
== END 2021-05-23 11:45 | disposition home or self-care (01) ==
LOC: M SDC 06:10
PROVIDERS: ATTEND Otolaryngology
DX: J34.2 Deviated nasal septum (principal); J31.0 Chronic rhinitis; E66.9 Obesity, unspecified; F41.9 Anxiety disorder, unspecified; F32.9 Major depressive disorder, single episode, unspecified; G43.909 Migraine, unspecified, not intractable, without status migrainosus; Z79.899 Other long term (current) drug therapy
CPT/HCPCS: 30140; 30520; 81025; 88300; 88305; J0131; J1100; J2250; J2405; J2765; J3010; Q9968

== ENCOUNTER 2022-03-26 13:22 | Outpatient (RCR) | payer MEDICAID, OTHER ==
[~2022-03-26 13:22] MED LIST changes: -LR 1,000 ML IV ONE
== END 2022-03-27 ==
LOC: M PT 13:22
PROVIDERS: ATTEND Otolaryngology
DX: M26.609 Unspecified temporomandibular joint disorder, unspecified side (principal)

== ENCOUNTER 2022-04-25 15:12 | Outpatient (RCR) | payer OTHER | END 2022-04-26 | LOC: M PT 15:12 | PROVIDERS: ATTEND Otolaryngology | DX: M26.609 Unspecified temporomandibular joint disorder, unspecified side (principal) ==

== ENCOUNTER 2022-05-02 15:10 | Outpatient (RCR) | payer OTHER | END 2022-05-27 | LOC: M PT 15:10 | PROVIDERS: ATTEND Otolaryngology | DX: M26.609 Unspecified temporomandibular joint disorder, unspecified side (principal) ==

== ENCOUNTER → 2022-12-25 | Outpatient (CLI) | payer OTHER | LOC: M SLEEP HO 15:12 | PROVIDERS: ATTEND Nurse Practitioner Family | DX: R06.83 Snoring (principal) ==

== ENCOUNTER → 2023-11-25 | Outpatient (CLI) | payer OTHER | LOC: M RAD 08:26 | PROVIDERS: ATTEND Family Medicine | DX: G43.909 Migraine, unspecified, not intractable, without status migrainosus (principal) ==

== ENCOUNTER → 2024-01-20 | Outpatient (CLI) | payer OTHER ==
[~2024-01-20] MED LIST changes: +PROHANCE 279.3MG/ML 15ML VIAL As Ordered ONE; +PROHANCE 279.3MG/ML 5ML VIAL As Ordered ONE
== END ==
LOC: M RAD 15:48
PROVIDERS: ATTEND Ophthalmology
DX: G43.109 Migraine with aura, not intractable, without status migrainosus (principal)
CPT/HCPCS: 70553; A9576

== ENCOUNTER → 2024-04-23 | Outpatient (REF) | payer OTHER, MEDICAID ==
[~2024-04-23] MED LIST changes: -PROHANCE 279.3MG/ML 15ML VIAL As Ordered ONE; -PROHANCE 279.3MG/ML 5ML VIAL As Ordered ONE
== END ==
LOC: M SFHCDERM 11:29
PROVIDERS: ATTEND Nurse Practitioner Family
DX: D24.2 Benign neoplasm of left breast (principal); D22.61 Melanocytic nevi of right upper limb, including shoulder